=== PATIENT | female | born 1935 | race American Indian/Alaskan Native ===

== ENCOUNTER 2017-12-14 00:07 | Emergency (ER) | payer MEDICARE, MEDICAID ==
[2017-12-14] MEDS ORDERED: Insulin Regular, Human 100 Units/ML 10 ML Vial SUBCUT ONE (01:10)
--- NOTE | 2017-12-14 01:14 | EDM.PDOC ---
ED HPI GENERAL MEDICAL PROBLEM - General Chief Complaint: Diabetic Complaint Stated Complaint: HIGH BLOOD SUGAR Time Seen by Provider: 12/14/17 00:40 Source of Information: Reports: Patient, Family History Limitations: Reports: No Limitations - History of Present Illness INITIAL COMMENTS - FREE TEXT/NARRATIVE: 82-year-old female who has several medical problems, recently started on 40 mg of prednisone daily for "Lupus" has had elevated blood sugars. She was having some hypoglycemic episodes prior to starting the prednisone so they stopped her 20 units of Levemir at bedtime. She is now getting hyperglycemic around midnight , and was told to come to the emergency room if "over 350". Tonight she was at 365, she feels fine but is doing what she was told. Onset: Unknown/Unsure Severity: Mild Denies Pain Score (Numeric/FACES): 0 - Related Data Allergies Allergy/AdvReac Type Severity Reaction Status Date / Time bupropion Allergy Rash Verified 12/14/17 00:19 Home Meds: Home Meds Aspirin [Halfprin] 162 mg PO DAILY 04/29/14 [History] Carvedilol 25 mg PO BID 04/29/14 [History] Cyclobenzaprine [Flexeril] 10 mg PO DAILY PRN 04/29/14 [History] Insulin Aspart [NovoLOG] 5 unit SQ TIDAC 04/29/14 [History] Insulin Detemir [Levemir] 55 units SQ DAILY 04/29/14 [History] Isosorbide Mononitrate [Isosorbide Mononitrate ER] 60 mg PO DAILY 04/29/14 [ History] Losartan [Cozaar] 100 mg PO DAILY 04/29/14 [History] Meclizine [Antivert] 25 mg PO Q6H PRN 04/29/14 [History] Multivitamin [Daily Multiple Vitamin] 1 tab PO DAILY 04/29/14 [History] Nitroglycerin [Nitrostat] 0.4 mg SL QID 04/29/14 [History] Pravastatin [Pravachol] 80 mg PO BEDTIME 04/29/14 [History] Sertraline [Zoloft] 150 mg PO DAILY 04/29/14 [History] Albuterol [Ventolin HFA] 2 puff INH QID PRN 08/27/15 [History] traZODone 50 mg PO DAILY 08/27/15 [History] Albuterol Sulfate 0.63 mg IN Q4HR PRN 07/20/16 [History] Formoterol/Mometasone [Dulera 100 MCG/5 MCG] 2 puff IN BID 07/20/16 [History] Enoxaparin Sodium [Lovenox] 70 mg SQ BID 12/14/17 [History] Sulfamethoxazole/Trimethoprim [Bactrim 400-80 MG] 1 each PO ASDIRECTED 12/14/17 [History] predniSONE [Prednisone] 40 mg PO DAILY 12/14/17 [History] Past Medical History HEENT History: Reports: Cataract Cardiovascular History: Reports: Arrhythmia, Hypertension, [place], Pacemaker Respiratory History: Reports: COPD, Other (See Below) Other Respiratory History: Recently bleeding in lungs. Hospitalized [facility]. D/C November 22 Other Gastrointestinal History: Constipation for three days. Patient took two dulcolax tabs this am without results. 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: Reports: Dysfunctional Uterine Bleeding, Musculoskeletal History: Reports: Arthritis, Osteoporosis, RA Other Musculoskeletal History: sciatic nerve pain Neurological History: Reports: CVA Psychiatric History: Reports: Addiction, Anxiety, Depression Endocrine/Metabolic History: Reports: Diabetes, Type II Dermatologic History: Reports: Other (See Below) Other Dermatologic History: diabetic ulcer - Infectious Disease History Infectious Disease History: Reports: Chicken Pox - Past Surgical History Cardiovascular Surgical History: Reports: Coronary Artery Stent Female Surgical History: Reports: Hysterectomy Social & Family History - Tobacco Use Smoking Status *Q: Current Every Day Smoker Years of Tobacco use: 55 Packs/Tins Daily: 1 Used Tobacco, but Quit: No Second Hand Smoke Exposure: Yes - Caffeine Use Caffeine Use: Reports: Coffee, Soda - Recreational Drug Use Recreational Drug Use: No ED ROS GENERAL - Review of Systems Review Of Systems: See Below Constitutional: Denies: Fever Respiratory: Denies: Shortness of Breath Cardiovascular: Denies: Chest Pain : Reports: No Symptoms Musculoskeletal: Reports: Back Pain (Chronic, receiving occasional steroid injections) Neurological: Denies: Headache Psychiatric: Reports: No Symptoms ED EXAM GENERAL NO PERIP PULSE - Physical Exam Exam: See Below Exam Limited By: No Limitations General Appearance: Alert, No Apparent Distress Respiratory/Chest: No Respiratory Distress, Lungs Clear Cardiovascular: Regular Rate, Rhythm Neurological: Alert, Oriented Psychiatric: Normal Affect, Normal Mood Skin Exam: Warm, Dry Course - Vital Signs Last Recorded V/S: Last Vital Signs Temp 97.2 F 12/14/17 01:43 Pulse 71 12/14/17 01:43 Resp 18 12/14/17 01:43 BP 130/40 L 12/14/17 01:43 Pulse Ox 95 12/14/17 01:43 - Orders/Labs/Meds Orders: Active Orders 24 hr Category Date Time Status GLUCOSE POC LAB TO COLLECT [POC] Stat Lab 12/14/17 00:59 Ordered Meds: Medications Discontinued Medications Generic Name Dose Route Start Last Admin Trade Name Vanita PRN Reason Stop Dose Admin Insulin Human Regular 10 unit 12/14/17 01:10 12/14/17 01:19 Novolin R SUBCUT 12/14/17 01:11 10 units ONETIME ONE Administration Protocol - Re-Assessments/Exams Free Text/Narrative Re-Assessment/Exam: 12/14/17 01:12 Glucometer revealed 364. A long discussion was held with the patient regarding her insulin therapy. I recommended restarting 10 units of Levemir at bedtime especially while on prednisone, and she was given 10 units of short acting insulin tonight. Departure - Departure Time of Disposition: 01:45 Disposition: Home, Self-Care 01 Condition: Good Clinical Impression: Hyperglycemia - Discharge Information Instructions: Hyperglycemia, [id number] Referrals: PCP,None [Primary Care Provider] - Forms: ED Department Discharge Care Plan Goals: Restart 10 units of Levemir at bedtime tomorrow night and continue your other regular medications. Discuss your blood sugar levels with your doctors on Sunday if concerns. - My Orders Last 24 Hours: My Active Orders 12/14/17 00:59 GLUCOSE POC LAB TO COLLECT [POC] Stat - Assessment/Plan Last 24 Hours: My Active Orders 12/14/17 00:59 GLUCOSE POC LAB TO COLLECT [POC] Stat
[2017-12-14 01:44] VITALS: BP 130/40
== END 2017-12-14 01:35 | disposition home or self-care (01) ==
LOC: JP.ED 00:07
DX: E11.65 Type 2 diabetes mellitus with hyperglycemia (principal); I10 Essential (primary) hypertension; I25.2 Old myocardial infarction; M19.90 Unspecified osteoarthritis, unspecified site; F41.9 Anxiety disorder, unspecified; F32.9 Major depressive disorder, single episode, unspecified; F17.210 Nicotine dependence, cigarettes, uncomplicated; Z88.8 Allergy status to other drugs, medicaments and biological substances; Z79.82 Long term (current) use of aspirin; Z79.4 Long term (current) use of insulin; Z79.899 Other long term (current) drug therapy
CPT/HCPCS: 82962; 99284; A9270

== ENCOUNTER 2018-01-01 12:27 | Emergency (ER) | payer MEDICARE, MEDICAID ==
[2018-01-01] MEDS ORDERED: Sodium Chloride 0.9% 10 ML Syringe FLUSH PRN (13:59)
--- NOTE | 2018-01-01 14:17 | EDM.PDOC ---
ED HPI GENERAL MEDICAL PROBLEM - General Chief Complaint: Gastrointestinal Problem Stated Complaint: BLEEDING FROM THE BOTTOM UNSURE WHERE Time Seen by Provider: 01/01/18 14:00 Source of Information: Reports: Patient, Family, Old Records, RN History Limitations: Reports: No Limitations - History of Present Illness INITIAL COMMENTS - FREE TEXT/NARRATIVE: 82 yo female presents after passing blood, apparently by rectum, about 10 am today. Daughter states that blood was flowing out of her rectum while she was walking to the bathroom. Elle was unaware of this. She is on warfarin. Has had some upper abdominal discomfort, but no nausea or vomiting. Is not dizzy with standing. Has no pHx of GI bleeding. Can't tell me when she last had an INR. 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 below) (none) - Related Data Allergies Allergy/AdvReac Type Severity Reaction Status Date / Time bupropion Allergy Rash Verified 12/14/17 00:19 Home Meds: Home Meds Aspirin [Halfprin] 162 mg PO DAILY 04/29/14 [History] Carvedilol 25 mg PO BID 04/29/14 [History] Cyclobenzaprine [Flexeril] 10 mg PO DAILY PRN 04/29/14 [History] Insulin Aspart [NovoLOG] 5 unit SQ TIDAC 04/29/14 [History] Insulin Detemir [Levemir] 55 units SQ DAILY 04/29/14 [History] Isosorbide Mononitrate [Isosorbide Mononitrate ER] 60 mg PO DAILY 04/29/14 [ History] Losartan [Cozaar] 100 mg PO DAILY 04/29/14 [History] Meclizine [Antivert] 25 mg PO Q6H PRN 04/29/14 [History] Multivitamin [Daily Multiple Vitamin] 1 tab PO DAILY 04/29/14 [History] Nitroglycerin [Nitrostat] 0.4 mg SL QID 04/29/14 [History] Pravastatin [Pravachol] 80 mg PO BEDTIME 04/29/14 [History] Sertraline [Zoloft] 150 mg PO DAILY 04/29/14 [History] Albuterol [Ventolin HFA] 2 puff INH QID PRN 08/27/15 [History] traZODone 50 mg PO DAILY 08/27/15 [History] Albuterol Sulfate 0.63 mg IN Q4HR PRN 07/20/16 [History] Formoterol/Mometasone [Dulera 100 MCG/5 MCG] 2 puff IN BID 07/20/16 [History] Enoxaparin Sodium [Lovenox] 70 mg SQ BID 12/14/17 [History] Sulfamethoxazole/Trimethoprim [Bactrim 400-80 MG] 1 each PO ASDIRECTED 12/14/17 [History] predniSONE [Prednisone] 40 mg PO DAILY 12/14/17 [History] Ferrous Gluconate 324 mg PO ASDIRECTED 01/01/18 [History] Warfarin Sodium [Coumadin] 4 mg PO ASDIRECTED 01/01/18 [History] Past Medical History HEENT History: Reports: Cataract Cardiovascular History: Reports: Arrhythmia, Hypertension, [place], Pacemaker Respiratory History: Reports: COPD, Other (See Below) Other Respiratory History: Recently bleeding in lungs. Hospitalized [facility]. D/C November 22 Other Gastrointestinal History: Constipation for three days. Patient took two dulcolax tabs this am without results. 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: Dysfunctional Uterine Bleeding, Musculoskeletal History: Reports: Arthritis, Osteoporosis, RA Other Musculoskeletal History: sciatic nerve pain Neurological History: Reports: CVA Psychiatric History: Reports: Addiction, Anxiety, Depression Endocrine/Metabolic History: Reports: Diabetes, Type II Dermatologic History: Reports: Other (See Below) Other Dermatologic History: diabetic ulcer - Infectious Disease History Infectious Disease History: Reports: Chicken Pox - Past Surgical History Cardiovascular Surgical History: Reports: Coronary Artery Stent Female Surgical History: Reports: Hysterectomy Social & Family History - Tobacco Use Smoking Status *Q: Light Tobacco Smoker Years of Tobacco use: 60 Packs/Tins Daily: 1 - Caffeine Use Caffeine Use: Reports: Coffee, Soda - Recreational Drug Use Recreational Drug Use: No ED ROS GENERAL - Review of Systems Review Of Systems: See Below Constitutional: Reports: No Symptoms HEENT: Reports: No Symptoms Respiratory: Reports: No Symptoms Cardiovascular: Reports: No Symptoms GI/Abdominal: Reports: Abdominal Pain (mild, upper), Bloody Stool (? blood only per rectum.). Denies: Black Stool, Constipation, Hematemesis, Hematochezia, Melena, Nausea, Vomiting, Other : Reports: No Symptoms Musculoskeletal: Reports: No Symptoms Skin: Reports: No Symptoms Neurological: Reports: Confusion (mild, not new) Psychiatric: Reports: No Symptoms ED EXAM, GI/ABD - Physical Exam Exam: See Below Exam Limited By: No Limitations General Appearance: Alert, WD/WN, No Apparent Distress Eyes: Bilateral: Normal Appearance Ears: Normal External Exam, Normal Canal, Hearing Loss (mild) Nose: Normal Inspection, Normal Mucosa, No Blood Throat/Mouth: Normal Inspection, Normal Lips, Normal Oropharynx, Normal Voice, No Airway Compromise Head: Atraumatic, Normocephalic Neck: Normal Inspection, Supple Respiratory/Chest: No Respiratory Distress, Lungs Clear, Normal Breath Sounds, No Accessory Muscle Use Cardiovascular: Regular Rate, Rhythm, No Edema GI/Abdominal Exam: Normal Bowel Sounds, Soft, No Distention, Tender (mild upper half) Rectal (Female) Exam: Bloody Stool (maroon) Back Exam: Normal Inspection. No: CVA Tenderness (R), CVA Tenderness (L) Extremities: Normal Inspection, Normal Range of Motion, Non-Tender, No Pedal Edema Neurological: Alert, Oriented, CN II-XII Intact, No Motor/Sensory Deficits, Confused (mild, poor historian) Psychiatric: Normal Affect, Normal Mood Skin Exam: Warm, Dry, Intact, Normal Color, No Rash Lymphatic: No Adenopathy Course - Vital Signs Text/Narrative:: [facility] is full, will send to [facility], Dr. Collins accepts @ 2334. Last Recorded V/S: Last Vital Signs Temp 35.9 C 01/01/18 13:52 Pulse 81 01/01/18 13:52 Resp 16 01/01/18 13:52 BP 145/112 H 01/01/18 13:52 Pulse Ox 95 01/01/18 13:52 - Orders/Labs/Meds Orders: Active Orders 24 hr Category Date Time Status Orthostatic Vital Signs [RC] ASDIRECTED Care 01/01/18 13:59 Active BASIC METABOLIC PANEL,BMP [CHEM] Stat Lab 01/01/18 14:10 Received UA W/MICROSCOPIC [URIN] Stat Lab 01/01/18 13:59 Ordered Lactated Ringers [Ringers, Lactated] 1,000 ml Med 01/01/18 15:15 Active IV ASDIRECTED Lactated Ringers [Ringers, Lactated] 1,000 ml Med 01/01/18 15:15 Active IV ASDIRECTED Sodium Chloride 0.9% [Saline Flush] Med 01/01/18 13:59 Active 10 ml FLUSH ASDIRECTED PRN Saline Lock Insert [OM.PC] Routine Oth 01/01/18 13:59 Ordered Medication Orders Lactated Ringer's (Ringers, Lactated) 1,000 mls @ 150 mls/hr IV ASDIRECTED PASTORA Lactated Ringer's (Ringers, Lactated) 1,000 mls @ 50 mls/hr IV ASDIRECTED PASTORA Sodium Chloride (Saline Flush) 10 ml FLUSH ASDIRECTED PRN PRN Reason: Keep Vein Open Last Admin: 01/01/18 14:47 Dose: 10 ml Labs: Laboratory Tests 01/01/18 01/01/18 Range/Units 13:59 14:10 WBC 8.6 (4.5-11.0) K/uL RBC 3.08 L (3.30-5.50) M/uL Hgb 8.0 L D (12.0-15.0) g/dL Hct 27.4 L (36.0-48.0) % MCV 89 (80-98) fL MCH 26 L (27-31) pg MCHC 29 L (32-36) % Plt Count 136 L (150-400) K/uL PT 14.2 H (9.5-12.0) sec INR 1.31 H (0.80-1.20) Meds: Medications Generic Name Dose Route Start Last Admin Trade Name Freq PRN Reason Stop Dose Admin Lactated Ringer's 1,000 mls @ 150 mls/hr 01/01/18 15:15 Ringers, Lactated IV ASDIRECTED PASTORA Lactated Ringer's 1,000 mls @ 50 mls/hr 01/01/18 15:15 Ringers, Lactated IV ASDIRECTED PASTORA Sodium Chloride 10 ml 01/01/18 13:59 01/01/18 14:47 Saline Flush FLUSH 10 ml ASDIRECTED PRN Administration Keep Vein Open Discontinued Medications Generic Name Dose Route Start Last Admin Trade Name Elvisq PRN Reason Stop Dose Admin Pantoprazole Sodium 80 mg/ 100 mls @ 200 mls/hr 01/01/18 14:45 01/01/18 14:47 Sodium Chloride IV 01/01/18 15:14 200 mls/hr ONETIME ONE Administration Departure - Departure Time of Disposition: 15:30 Disposition: DC/Tfer to Acute Hospital 02 Condition: Fair Clinical Impression: GI bleed Qualifiers: GI bleed type/associated pathology: unspecified gastrointestinal hemorrhage type Qualified Code(s): K92.2 - Gastrointestinal hemorrhage, unspecified Anemia Qualifiers: Anemia type: unspecified type Qualified Code(s): D64.9 - Anemia, unspecified - Discharge Information Referrals: Amber Alaniz I AERIAL GUNNER [Primary Care Provider] - Forms: ED Department Discharge - My Orders Last 24 Hours: My Active Orders 01/01/18 13:59 Orthostatic Vital Signs [RC] ASDIRECTED UA W/MICROSCOPIC [URIN] Stat Sodium Chloride 0.9% [Saline Flush] 10 ml FLUSH ASDIRECTED PRN Saline Lock Insert [OM.PC] Routine 01/01/18 14:10 BASIC METABOLIC PANEL,BMP [CHEM] Stat 01/01/18 15:15 Lactated Ringers [Ringers, Lactated] 1,000 ml IV ASDIRECTED Lactated Ringers [Ringers, Lactated] 1,000 ml IV ASDIRECTED - Assessment/Plan Last 24 Hours: My Active Orders 01/01/18 13:59 Orthostatic Vital Signs [RC] ASDIRECTED UA W/MICROSCOPIC [URIN] Stat Sodium Chloride 0.9% [Saline Flush] 10 ml FLUSH ASDIRECTED PRN Saline Lock Insert [OM.PC] Routine 01/01/18 14:10 BASIC METABOLIC PANEL,BMP [CHEM] Stat 01/01/18 15:15 Lactated Ringers [Ringers, Lactated] 1,000 ml IV ASDIRECTED Lactated Ringers [Ringers, Lactated] 1,000 ml IV ASDIRECTED
[2018-01-01] MEDS ORDERED: Pantoprazole 80 MG in Sodium Chloride 0.9% 100 ML IV SCH (14:30)
[2018-01-01] MEDS ORDERED: Pantoprazole 80 MG in Sodium Chloride 0.9% 100 ML IV ONE (14:45)
[2018-01-01] MEDS ORDERED: Lactated Ringers 1,000 ML IV SCH ×2 (15:15)
[2018-01-01 17:35] VITALS: BP 125/94
== END 2018-01-01 17:54 ==
LOC: JP.ED 12:27
DX: K92.2 Gastrointestinal hemorrhage, unspecified (principal); D64.9 Anemia, unspecified; F17.210 Nicotine dependence, cigarettes, uncomplicated; J44.9 Chronic obstructive pulmonary disease, unspecified; Z79.899 Other long term (current) drug therapy; E11.9 Type 2 diabetes mellitus without complications; Z86.73 Personal history of transient ischemic attack (TIA), and cerebral infarction without residual deficits; Z79.4 Long term (current) use of insulin; Z79.82 Long term (current) use of aspirin; Z79.01 Long term (current) use of anticoagulants; Z88.8 Allergy status to other drugs, medicaments and biological substances
CPT/HCPCS: 36415; 80048; 85027; 85610; 96361; 96365; 99283; 99285; C9113; J7030; J7050; J7120

== ENCOUNTER 2018-01-22 13:31 | Emergency (ER) | payer MEDICARE, MEDICAID ==
--- NOTE | 2018-01-22 15:07 | EDM.PDOC ---
ED HPI GENERAL MEDICAL PROBLEM - General Chief Complaint: Syncope Stated Complaint: FELL AND HURT LEFT HIP Time Seen by Provider: 01/22/18 14:50 Source of Information: Reports: Patient, Family, Old Records, RN History Limitations: Reports: No Limitations - History of Present Illness INITIAL COMMENTS - FREE TEXT/NARRATIVE: 82 yo female presents with L hip pain after a fall in her home about 0430h today. Has been able to walk since with extreme difficulty only. Uses a walker to get around. Onset: Today Onset Date: 01/22/18 Onset Time: 04:30 Duration: Hour(s):, Constant Location: Reports: Lower Extremity, Left Quality: Reports: Ache Severity: Moderate Improves with: Reports: Rest Worsens with: Reports: Movement Context: Reports: Trauma Associated Symptoms: Reports: No Other Symptoms Treatments VAMPER: Reports: Other (see below) (none) - Related Data Allergies Allergy/AdvReac Type Severity Reaction Status Date / Time bupropion Allergy Rash Verified 12/14/17 00:19 Home Meds: Home Meds Aspirin [Halfprin] 81 mg PO DAILY 04/29/14 [History] Carvedilol 25 mg PO BID 04/29/14 [History] Cyclobenzaprine [Flexeril] 10 mg PO DAILY PRN 04/29/14 [History] Insulin Aspart [NovoLOG] 5 unit SQ TIDAC 04/29/14 [History] Insulin Detemir [Levemir] 40 units SQ DAILY 04/29/14 [History] Isosorbide Mononitrate [Isosorbide Mononitrate ER] 30 mg PO DAILY 04/29/14 [ History] Losartan [Cozaar] 100 mg PO DAILY 04/29/14 [History] Meclizine [Antivert] 25 mg PO Q6H PRN 04/29/14 [History] Multivitamin [Daily Multiple Vitamin] 1 tab PO DAILY 04/29/14 [History] Nitroglycerin [Nitrostat] 0.4 mg SL QID 04/29/14 [History] Pravastatin [Pravachol] 80 mg PO BEDTIME 04/29/14 [History] Sertraline [Zoloft] 150 mg PO DAILY 04/29/14 [History] Albuterol [Ventolin HFA] 2 puff INH QID PRN 08/27/15 [History] traZODone 50 mg PO DAILY 08/27/15 [History] Albuterol Sulfate 0.63 mg IN Q4HR PRN 07/20/16 [History] Formoterol/Mometasone [Dulera 100 MCG/5 MCG] 2 puff IN BID 07/20/16 [History] Sulfamethoxazole/Trimethoprim [Bactrim 400-80 MG] 1 each PO ASDIRECTED 12/14/17 [History] predniSONE [Prednisone] 20 mg PO DAILY 12/14/17 [History] Warfarin Sodium [Coumadin] 4 mg PO ASDIRECTED 01/01/18 [History] Baclofen 10 mg PO BEDTIME 01/22/18 [History] Mycophenolate Mofetil 1,000 mg PO DAILY 01/22/18 [History] Saxagliptin HCl [Onglyza] 1 tab PO DAILY 01/22/18 [History] Past Medical History HEENT History: Reports: Cataract Cardiovascular History: Reports: Arrhythmia, Hypertension, [place], Pacemaker Respiratory History: Reports: COPD, Other (See Below) Other Respiratory History: Recently bleeding in lungs. Hospitalized [facility]. D/C November 22 Gastrointestinal History: Reports: GI Bleed Other Gastrointestinal History: Constipation for three days. Patient took two dulcolax tabs this am without results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 Psychiatric History: Reports: Addiction, Anxiety, Depression Endocrine/Metabolic History: Reports: Diabetes, Type II Hematologic History: Reports: Anemia, Blood Transfusion(s) Immunologic History: Reports: Other (See Below) Other Immunologic History: BELA AND RA Dermatologic History: Reports: Other (See Below) Other Dermatologic History: diabetic ulcer - Infectious Disease History Infectious Disease History: Reports: Chicken Pox - Past Surgical History Cardiovascular Surgical History: Reports: Coronary Artery Stent Female Surgical History: Reports: Hysterectomy Social & Family History - Tobacco Use Smoking Status *Q: Current Every Day Smoker Years of Tobacco use: 56 Packs/Tins Daily: 0.5 - Caffeine Use Caffeine Use: Reports: Coffee, Soda - Recreational Drug Use Recreational Drug Use: No Review of Systems - Review of Systems Review Of Systems: See Below Constitutional: Reports: No Symptoms Eyes: Reports: No Symptoms Ears: Reports: No Symptoms Nose: Reports: No Symptoms Respiratory: Reports: No Symptoms Cardiovascular: Reports: No Symptoms GI/Abdominal: Reports: No Symptoms Genitourinary: Reports: No Symptoms Musculoskeletal: Reports: Joint Pain (L hip) Skin: Reports: Bruising (L eyebrow area from fall today.) Neurological: Reports: No Symptoms ED EXAM, GENERAL - Physical Exam Exam: See Below Exam Limited By: No Limitations General Appearance: Alert, WD/WN, No Apparent Distress Eye Exam: Bilateral Eye: Normal Inspection, PERRL Ears: Normal External Exam, Normal Canal, Hearing Grossly Normal Ear Exam: Bilateral Ear: Auricle Normal, Canal Normal Nose: Normal Inspection, Normal Mucosa Throat/Mouth: Normal Inspection, Normal Lips, Normal Oropharynx, Normal Voice, No Airway Compromise Head: Atraumatic, Normocephalic Neck: Normal Inspection, Supple Respiratory/Chest: No Respiratory Distress, Lungs Clear, Normal Breath Sounds, No Accessory Muscle Use Cardiovascular: Regular Rate, Rhythm, No Edema GI/Abdominal: Normal Bowel Sounds, Soft, Non-Tender, No Distention Extremities: Normal Inspection, Limited Range of Motion (passive ROM of L hip area tolerated as long as the ROM is limited, beyond a few degrees pain is too great. ), Other (Unable to lift L leg off the bed. No pain with pelvic compression. ) Neurological: Alert, Oriented, CN II-XII Intact, Normal Cognition, No Motor/ Sensory Deficits Psychiatric: Normal Affect, Normal Mood Skin Exam: Warm, Dry, Intact, No Rash, Ecchymosis (bruising around L eyebrow) Course - Vital Signs Text/Narrative:: able to walk in ED with a walker after 1 Percocet po. Last Recorded V/S: Last Vital Signs Temp 36.6 C 01/22/18 17:27 Pulse 82 01/22/18 17:27 Resp 15 01/22/18 17:27 BP 131/77 01/22/18 17:27 Pulse Ox 96 01/22/18 17:27 - Orders/Labs/Meds Orders: Active Orders 24 hr Category Date Time Status Hip Min 2V or 3V w Pelvis Lt [CR] Stat Exams 01/22/18 14:58 Taken Hip wo Cont Lt [CT] Stat Exams 01/22/18 15:34 Taken Hemoccult [OCCULT BLOOD DIAGNOSTIC] [OP] Stat Lab 01/22/18 17:19 Ordered Labs: Laboratory Tests 01/22/18 01/22/18 01/22/18 Range/Units 16:35 17:04 17:05 Hgb 8.5 L (12.0-15.0) g/dL PT 10.7 (9.5-12.0) sec INR 0.97 (0.80-1.20) Sodium 140 (140-148) mmol/L Potassium 3.4 L (3.6-5.2) mmol/L Chloride 106 (100-108) mmol/L Carbon Dioxide 25 (21-32) mmol/L Anion Gap 12.4 (5.0-14.0) mmol/L BUN 13 (7-18) mg/dL Creatinine 0.6 (0.6-1.0) mg/dL Est Cr Clr Drug Dosing 52.82 mL/min Estimated GFR (MDRD) > 60 (>60) Glucose 176 H (74-106) mg/dL Calcium 8.3 L (8.5-10.1) mg/dL Meds: Medications Discontinued Medications Generic Name Dose Route Start Last Admin Trade Name Freq PRN Reason Stop Dose Admin Oxycodone/Acetaminophen 1 tab 01/22/18 16:22 01/22/18 16:26 Percocet 325-5 Mg PO 01/22/18 16:23 1 tab ONETIME ONE Administration Potassium Chloride 20 meq 01/22/18 17:22 01/22/18 17:25 Klor-Con M20 PO 01/22/18 17:23 20 meq ONETIME ONE Administration - Radiology Interpretation Free Text/Narrative:: L hip X-ray-neg CT of L hip-degen changes only. Departure - Departure Time of Disposition: 17:34 Disposition: Home, Self-Care 01 Condition: Fair Clinical Impression: Hypokalemia Contusion of hip, left Qualifiers: Encounter type: initial encounter Qualified Code(s): S70.02XA - Contusion of left hip, initial encounter Anemia Qualifiers: Anemia type: unspecified type Qualified Code(s): D64.9 - Anemia, unspecified - Discharge Information Referrals: PCP,None [Primary Care Provider] - Forms: ED Department Discharge Additional Instructions: Take Percocet to help your pain so you can walk. Eat a high potassium diet. Recheck with your provider within the week. - My Orders Last 24 Hours: My Active Orders 01/22/18 14:58 Hip Min 2V or 3V w Pelvis Lt [CR] Stat 01/22/18 15:34 Hip wo Cont Lt [CT] Stat 01/22/18 17:19 Hemoccult [OCCULT BLOOD DIAGNOSTIC] [OP] Stat - Assessment/Plan Last 24 Hours: My Active Orders 01/22/18 14:58 Hip Min 2V or 3V w Pelvis Lt [CR] Stat 01/22/18 15:34 Hip wo Cont Lt [CT] Stat 01/22/18 17:19 Hemoccult [OCCULT BLOOD DIAGNOSTIC] [OP] Stat
[2018-01-22] MEDS ORDERED: Acetaminophen/oxyCODONE 325-5 MG Tab PO ONE (16:22)
[2018-01-22] MEDS ORDERED: Potassium Chloride 20 MEQ Tab.ER PO ONE (17:22)
[2018-01-22 17:29] VITALS: BP 131/77
--- NOTE | 2018-01-23 08:32 | CR ---
Hip Min 2V or 3V w Pelvis Lt CLINICAL HISTORY: Pain, fall FINDINGS: No acute fracture or dislocation is noted. No destructive changes are present. The joint sp aces are narrowed in both hips. There is some acetabular spurring. There is moderate diffuse atherosc lerotic changes. There is spurring at the greater trochanters bilaterally Impression: Moderate osteoarthritic changes No fracture is identified If clinical symptomatology persists or worsens a repeat exam is recommended.
== END 2018-01-22 17:54 | disposition home or self-care (01) ==
LOC: JP.ED 13:31
DX: S70.02XA Contusion of left hip, initial encounter (principal); D64.9 Anemia, unspecified; E87.6 Hypokalemia; F17.210 Nicotine dependence, cigarettes, uncomplicated; I10 Essential (primary) hypertension; J44.9 Chronic obstructive pulmonary disease, unspecified; I25.2 Old myocardial infarction; M19.90 Unspecified osteoarthritis, unspecified site; E11.9 Type 2 diabetes mellitus without complications; F41.9 Anxiety disorder, unspecified; F32.9 Major depressive disorder, single episode, unspecified; Z79.82 Long term (current) use of aspirin; Z79.899 Other long term (current) drug therapy; Z88.8 Allergy status to other drugs, medicaments and biological substances; W19.XXXA Unspecified fall, initial encounter; W22.8XXA Striking against or struck by other objects, initial encounter
CPT/HCPCS: 36415; 73502; 73700; 80048; 82272; 85018; 85610; 99285; A9270

== ENCOUNTER 2018-02-28 15:21 | Emergency (ER) | payer MEDICARE, MEDICAID ==
[2018-02-28] MEDS: Lactated Ringers 1,000 ML IV ONE ×2 (15:41→15:42)
--- NOTE | 2018-02-28 16:14 | EDM.PDOC ---
ED HPI GENERAL MEDICAL PROBLEM - General Chief Complaint: Cardiovascular Problem Stated Complaint: ILLNESS Time Seen by Provider: 02/28/18 15:50 Source of Information: Reports: Patient, Old Records History Limitations: Reports: No Limitations - History of Present Illness INITIAL COMMENTS - FREE TEXT/NARRATIVE: 82 yo female here via EMS with low blood pressure for which she is asymptomatic. She states she has not seen her primary even though she has been directed after each of her many recent ER visits to follow up with him. Last time she was here she received a liter of fluids IV and this brought her BP up into the normal range. 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 date of change.) - Related Data Allergies Allergy/AdvReac Type Severity Reaction Status Date / Time bupropion Allergy Rash Verified 02/28/18 15:23 Home Meds: Home Meds Aspirin [Halfprin] 81 mg PO DAILY 04/29/14 [History] Carvedilol 25 mg PO BID 04/29/14 [History] Cyclobenzaprine [Flexeril] 10 mg PO DAILY PRN 04/29/14 [History] Insulin Aspart [NovoLOG] 5 unit SQ TIDAC 04/29/14 [History] Insulin Detemir [Levemir] 55 units SQ DAILY 04/29/14 [History] Isosorbide Mononitrate [Isosorbide Mononitrate ER] 60 mg PO DAILY 04/29/14 [ History] Losartan [Cozaar] 100 mg PO DAILY 04/29/14 [History] Meclizine [Antivert] 25 mg PO Q6H PRN 04/29/14 [History] Multivitamin [Daily Multiple Vitamin] 1 tab PO DAILY 04/29/14 [History] Nitroglycerin [Nitrostat] 0.4 mg SL QID 04/29/14 [History] Pravastatin [Pravachol] 80 mg PO BEDTIME 04/29/14 [History] Sertraline [Zoloft] 150 mg PO DAILY 04/29/14 [History] Albuterol [Ventolin HFA] 2 puff INH QID PRN 08/27/15 [History] traZODone 50 mg PO DAILY 08/27/15 [History] Albuterol Sulfate 0.63 mg IN Q4HR PRN 07/20/16 [History] Formoterol/Mometasone [Dulera 100 MCG/5 MCG] 2 puff IN BID 07/20/16 [History] Sulfamethoxazole/Trimethoprim [Bactrim 400-80 MG] 1 each PO ASDIRECTED 12/14/17 [History] predniSONE [Prednisone] 20 mg PO DAILY 12/14/17 [History] Warfarin Sodium [Coumadin] 4 mg PO ASDIRECTED 01/01/18 [History] Baclofen 10 mg PO BEDTIME 01/22/18 [History] Mycophenolate Mofetil 1,000 mg PO BID 01/22/18 [History] Saxagliptin HCl [Onglyza] 1 tab PO DAILY 01/22/18 [History] Past Medical History HEENT History: Reports: Cataract Cardiovascular History: Reports: Arrhythmia, Hypertension, [place], Pacemaker Respiratory History: Reports: COPD, Other (See Below) Other Respiratory History: Recently bleeding in lungs. Hospitalized [facility]. D/C November 22 Gastrointestinal History: Reports: GI Bleed Other Gastrointestinal History: Constipation for three days. Patient took two dulcolax tabs this am without results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: Reports: Dysfunctional Uterine Bleeding, Musculoskeletal History: Reports: Arthritis, Osteoarthritis, Osteoporosis, RA Other Musculoskeletal History: sciatic nerve pain Neurological History: Reports: CVA, Other (See Below) Other Neuro History: CHOREA INVOLUNTARY MOVEMENTS HANDS AND FEET Psychiatric History: Reports: Addiction, Anxiety, Depression Endocrine/Metabolic History: Reports: Diabetes, Type II Hematologic History: Reports: Anemia, Blood Transfusion(s) Immunologic History: Reports: Other (See Below) Other Immunologic History: BELA AND RA Dermatologic History: Reports: Other (See Below) Other Dermatologic History: diabetic ulcer - Infectious Disease History Infectious Disease History: Reports: Chicken Pox - Past Surgical History Cardiovascular Surgical History: Reports: Coronary Artery Stent Female Surgical History: Reports: Hysterectomy Social & Family History - Tobacco Use Smoking Status *Q: Heavy Tobacco Smoker Years of Tobacco use: 71 Packs/Tins Daily: 1 - Caffeine Use Caffeine Use: Reports: Coffee - Recreational Drug Use Recreational Drug Use: No ED ROS GENERAL - Review of Systems Review Of Systems: See Below Constitutional: Reports: No Symptoms HEENT: Reports: No Symptoms Respiratory: Reports: No Symptoms Cardiovascular: Reports: No Symptoms Endocrine: Reports: No Symptoms GI/Abdominal: Reports: No Symptoms : Reports: No Symptoms Musculoskeletal: Reports: No Symptoms Skin: Reports: No Symptoms Neurological: Reports: No Symptoms Psychiatric: Reports: No Symptoms ED EXAM, GENERAL - Physical Exam Exam: See Below Exam Limited By: No Limitations General Appearance: Alert, WD/WN, No Apparent Distress Eye Exam: Bilateral Eye: Normal Inspection Ears: Normal External Exam, Normal Canal, Hearing Grossly Normal Ear Exam: Bilateral Ear: Auricle Normal, Canal Normal Nose: Normal Inspection, Normal Mucosa, No Blood Throat/Mouth: Normal Inspection, Normal Lips, Normal Oropharynx, Normal Voice, No Airway Compromise Head: Atraumatic, Normocephalic Neck: Normal Inspection Respiratory/Chest: No Respiratory Distress, Lungs Clear, Normal Breath Sounds, No Accessory Muscle Use Cardiovascular: Regular Rate, Rhythm, No Edema GI/Abdominal: Normal Bowel Sounds, Soft, Non-Tender Extremities: Normal Inspection, Normal Range of Motion, Non-Tender, No Pedal Edema Neurological: Alert, Oriented, CN II-XII Intact, Normal Cognition, No Motor/ Sensory Deficits Psychiatric: Normal Affect, Normal Mood Skin Exam: Warm, Dry, Intact, Normal Color, No Rash Lymphatic: No Adenopathy Course - Vital Signs Last Recorded V/S: Last Vital Signs Temp 36.1 C 02/28/18 15:26 Pulse 69 02/28/18 16:42 Resp 20 02/28/18 16:42 BP 100/36 L 02/28/18 16:42 Pulse Ox 70 L 02/28/18 16:42 - Orders/Labs/Meds Labs: Laboratory Tests 02/28/18 Range/Units 15:34 Potassium 4.7 (3.6-5.2) mmol/L Meds: Medications Discontinued Medications Generic Name Dose Route Start Last Admin Trade Name Freq PRN Reason Stop Dose Admin Lactated Ringer's 1,000 mls @ 1,000 mls/hr 02/28/18 15:35 02/28/18 15:42 Ringers, Lactated IV 02/28/18 16:34 1,000 mls/hr BOLUS ONE Administration Departure - Departure Time of Disposition: 16:47 Disposition: Home, Self-Care 01 Condition: Fair Clinical Impression: Hypotension Qualifiers: Hypotension type: unspecified hypotension type Qualified Code(s): I95.9 - Hypotension, unspecified Instructions: Hypotension, [id number] Referrals: PCP,None [Primary Care Provider] - Forms: ED Department Discharge Additional Instructions: Reduce your losartan to 25 mg daily. Reduce your Coreg to 12.5 mg every 12 hrs. Recheck BP with your doctor as soon as possible. Continue your other meds as currently.
[2018-02-28 17:04] VITALS: BP 113/48
== END 2018-02-28 18:20 | disposition home or self-care (01) ==
LOC: JP.ED 15:21
DX: I95.9 Hypotension, unspecified (principal); F17.210 Nicotine dependence, cigarettes, uncomplicated; I10 Essential (primary) hypertension; E11.9 Type 2 diabetes mellitus without complications; I25.2 Old myocardial infarction; J44.9 Chronic obstructive pulmonary disease, unspecified; F41.9 Anxiety disorder, unspecified; F32.9 Major depressive disorder, single episode, unspecified; Z79.4 Long term (current) use of insulin; Z79.899 Other long term (current) drug therapy; Z79.82 Long term (current) use of aspirin; Z88.8 Allergy status to other drugs, medicaments and biological substances
CPT/HCPCS: 36415; 84132; 96360; 99284; J7120

== ENCOUNTER 2018-07-29 22:17 | Inpatient (IN) | payer MEDICARE, MEDICAID ==
--- NOTE | 2018-07-29 23:34 | EDM.PDOC ---
ED HPI GENERAL MEDICAL PROBLEM - General Chief Complaint: Lower Extremity Injury/Pain Stated Complaint: FELL HURT RI HIP Time Seen by Provider: 07/29/18 23:29 Source of Information: Reports: Patient, EMS, RN Notes Reviewed History Limitations: Reports: No Limitations - History of Present Illness INITIAL COMMENTS - FREE TEXT/NARRATIVE: 83-year-old female presents emergency department today following a fall at home she tripped on the rug fell landed predominate on her right hip she now is experiencing significant pain. Transported via EMS services did receive 100 g of fentanyl which has provided good pain control Right Hip Pain Score (Numeric/FACES): 3 - Related Data Allergies Allergy/AdvReac Type Severity Reaction Status Date / Time bupropion Allergy Rash Verified 02/28/18 15:23 Home Meds: Home Meds Aspirin [Halfprin] 81 mg PO DAILY 04/29/14 [History] Carvedilol 6.25 mg PO BID 04/29/14 [History] Insulin Aspart [NovoLOG] 5 unit SQ TIDAC 04/29/14 [History] Insulin Detemir [Levemir] 80 units SQ DAILY 04/29/14 [History] Losartan [Cozaar] 100 mg PO DAILY 04/29/14 [History] Multivitamin [Daily Multiple Vitamin] 1 tab PO DAILY 04/29/14 [History] Nitroglycerin [Nitrostat] 0.4 mg SL QID 04/29/14 [History] Pravastatin [Pravachol] 80 mg PO BEDTIME 04/29/14 [History] Sertraline [Zoloft] 150 mg PO DAILY 04/29/14 [History] Albuterol [Ventolin HFA] 2 puff INH QID PRN 08/27/15 [History] traZODone 50 mg PO DAILY 08/27/15 [History] Albuterol Sulfate 0.63 mg IN Q4HR PRN 07/20/16 [History] Formoterol/Mometasone [Dulera 100 MCG/5 MCG] 2 puff IN BID 07/20/16 [History] Sulfamethoxazole/Trimethoprim [Bactrim 400-80 MG] 1 each PO ASDIRECTED 12/14/17 [History] Baclofen 10 mg PO BEDTIME 01/22/18 [History] Mycophenolate Mofetil 1,000 mg PO BID 01/22/18 [History] Saxagliptin HCl [Onglyza] 1 tab PO DAILY 01/22/18 [History] Acetaminophen/HYDROcodone [[place] 325-5 MG] 1 tab PO DAILY 07/29/18 [History] Ibuprofen 400 mg PO Q6H PRN 07/29/18 [History] Isosorbide Mononitrate [Isosorbide Mononitrate ER] 30 mg PO DAILY 07/29/18 [ History] Omeprazole Magnesium [Prilosec Otc] 20 mg PO DAILY 07/29/18 [History] Ondansetron [Zofran Odt] 8 mg PO BID 07/29/18 [History] Past Medical History HEENT History: Reports: Cataract Cardiovascular History: Reports: Arrhythmia, CAD, Hypertension, [place], Pacemaker Respiratory History: Reports: COPD, Other (See Below) Other Respiratory History: Recently bleeding in lungs. Hospitalized [facility]. D/C November 22 Gastrointestinal History: Reports: GI Bleed Other Gastrointestinal History: Constipation for three days. Patient took two dulcolax tabs this am without results. 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 History: Reports: Dysfunctional Uterine Bleeding, Musculoskeletal History: Reports: Arthritis, Osteoarthritis, Osteoporosis, RA Other Musculoskeletal History: sciatic nerve pain Neurological History: Reports: CVA, Other (See Below) Other Neuro History: CHOREA INVOLUNTARY MOVEMENTS HANDS AND FEET Psychiatric History: Reports: Addiction, Anxiety, Depression Endocrine/Metabolic History: Reports: Diabetes, Type II Hematologic History: Reports: Anemia, Blood Transfusion(s) Immunologic History: Reports: Other (See Below) Other Immunologic History: BELA AND RA Dermatologic History: Reports: Other (See Below) Other Dermatologic History: diabetic ulcer - Infectious Disease History Infectious Disease History: Reports: Chicken Pox - Past Surgical History Cardiovascular Surgical History: Reports: Coronary Artery Stent Female Surgical History: Reports: Hysterectomy Social & Family History - Tobacco Use Smoking Status *Q: Unknown Ever Smoked - Caffeine Use Caffeine Use: Reports: None - Recreational Drug Use Recreational Drug Use: No Review of Systems - Review of Systems Review Of Systems: See Below Constitutional: Reports: No Symptoms Respiratory: Reports: No Symptoms Cardiovascular: Reports: No Symptoms GI/Abdominal: Reports: No Symptoms Musculoskeletal: Reports: Joint Pain (Right hip pain) Skin: Reports: No Symptoms Neurological: Reports: No Symptoms ED EXAM, GENERAL - Physical Exam Exam: See Below Free Text/Narrative:: Examination the right hip I don't appreciate any bruising there is no erythema there is no edema noted she does have pain with either flexion or extension or internal/external rotation of the hip Exam Limited By: No Limitations General Appearance: Alert, WD/WN, No Apparent Distress Course - Vital Signs Last Recorded V/S: Last Vital Signs Temp 96.0 F 07/29/18 22:24 Pulse 88 07/29/18 23:00 Resp 16 07/29/18 23:00 BP 107/45 L 07/29/18 23:00 Pulse Ox 95 07/29/18 23:00 - Orders/Labs/Meds Orders: Active Orders 24 hr Category Date Time Status Hip Min 2V or 3V w Pelvis Rt [CR] Stat Exams 07/29/18 23:31 Taken Hip wo Cont Rt [CT] Stat Exams 07/30/18 00:29 Taken Meds: Medications Discontinued Medications Generic Name Dose Route Start Last Admin Trade Name Freq PRN Reason Stop Dose Admin Fentanyl 50 mcg 07/30/18 00:30 07/30/18 00:58 Sublimaze IVPUSH 07/30/18 00:31 50 mcg ONETIME ONE Administration Departure - Departure Time of Disposition: 02:08 Disposition: DC/Tfer to Acute Hospital 02 Condition: Fair Clinical Impression: Acetabulum fracture, right Qualifiers: Encounter type: initial encounter Sublocation of acetabulum: anterior wall Fracture type: closed Fracture alignment: nondisplaced Qualified Code(s): S32.414A - Nondisplaced fracture of anterior wall of right acetabulum, initial encounter for closed fracture - Discharge Information Referrals: PCP,None [Primary Care Provider] - Forms: ED Department Discharge - My Orders Last 24 Hours: My Active Orders 07/29/18 23:31 Hip Min 2V or 3V w Pelvis Rt [CR] Stat 07/30/18 00:29 Hip wo Cont Rt [CT] Stat - Assessment/Plan Last 24 Hours: My Active Orders 07/29/18 23:31 Hip Min 2V or 3V w Pelvis Rt [CR] Stat 07/30/18 00:29 Hip wo Cont Rt [CT] Stat Plan: Assessment Acuity = acute Site and laterality = NONDISPLACED FRACTURE OF THE ANTERIOR-SUPERIOR RIGHT ACETABULUM Etiology = secondary to fall at home Manifestations = pain Location of injury = Home Lab values = initial x-ray did not appreciate a fracture, however the CT scan describes the fracture above Plan Called discussed the case with Dr. Car hospitalist at [facility] at 02:00 kindly accepted the patient, she will be transported via EMS ground, has received 150 mics of fentanyl for pain control This note was dictated using [employer] voice recognition software please call with any questions on syntax or grammar.
[2018-07-30] MEDS ORDERED: fentaNYL 100 MCG/2 ML SDV IVPUSH ONE (00:30)
--- NOTE | 2018-07-30 08:54 | PCM.HP ---
H&P History of Present Illness - General Date of Service: 07/30/18 Admit Problem/Dx: Admission Diagnosis/Problem Admission Diagnosis/Problem Fracture of acetabulum Source of Information: Patient, Provider, RN Notes Reviewed History Limitations: Reports: No Limitations - History of Present Illness Initial Comments - Free Text/Narative: Ms. Wei is an 83-year-old woman who was admitted through the emergency department after falling at home and experiencing pubic rami fracture as well as nondisplaced acetabular fracture. Fractures identified on CT scan and have been reviewed by orthopedic surgery, fractures are felt to be nonsurgical at the present time. She has multiple other underlying medical problems including diabetes, COPD, congestive heart failure, and coronary artery disease. She reports a recent history of abdominal pain over the past several months with a 20 pound weight loss. During this period of time she has become progressively more weak and she feels that this led to her fall. Within the past several months she experienced a GI bleed and was hospitalized at [facility] in [place] for several days. Evaluation was obtained there including CT scan, will attempt to obtain those records. Right Hip Pain Score (Numeric/FACES): 3 - Related Data Allergies/Adverse Reactions: Allergies Allergy/AdvReac Type Severity Reaction Status Date / Time bupropion Allergy Rash Verified 02/28/18 15:23 Home Medications: Home Meds Aspirin [Halfprin] 81 mg PO DAILY 04/29/14 [History] Carvedilol 6.25 mg PO BID 04/29/14 [History] Insulin Aspart [NovoLOG] 5 unit SQ TIDAC 04/29/14 [History] Insulin Detemir [Levemir] 80 units SQ DAILY 04/29/14 [History] Losartan [Cozaar] 100 mg PO DAILY 04/29/14 [History] Multivitamin [Daily Multiple Vitamin] 1 tab PO DAILY 04/29/14 [History] Nitroglycerin [Nitrostat] 0.4 mg SL QID 04/29/14 [History] Pravastatin [Pravachol] 80 mg PO BEDTIME 04/29/14 [History] Sertraline [Zoloft] 150 mg PO DAILY 04/29/14 [History] Albuterol [Ventolin HFA] 2 puff INH QID PRN 08/27/15 [History] traZODone 50 mg PO DAILY 08/27/15 [History] Albuterol Sulfate 0.63 mg IN Q4HR PRN 07/20/16 [History] Formoterol/Mometasone [Dulera 100 MCG/5 MCG] 2 puff IN BID 07/20/16 [History] Sulfamethoxazole/Trimethoprim [Bactrim 400-80 MG] 1 each PO ASDIRECTED 12/14/17 [History] Baclofen 10 mg PO BEDTIME 01/22/18 [History] Mycophenolate Mofetil 1,000 mg PO BID 01/22/18 [History] Saxagliptin HCl [Onglyza] 1 tab PO DAILY 01/22/18 [History] Acetaminophen/HYDROcodone [[place] 325-5 MG] 1 tab PO DAILY 07/29/18 [History] Ibuprofen 400 mg PO Q6H PRN 07/29/18 [History] Isosorbide Mononitrate [Isosorbide Mononitrate ER] 30 mg PO DAILY 07/29/18 [ History] Omeprazole Magnesium [Prilosec Otc] 20 mg PO DAILY 07/29/18 [History] Ondansetron [Zofran Odt] 8 mg PO BID 07/29/18 [History] Past Medical History HEENT History: Reports: Cataract Cardiovascular History: Reports: Arrhythmia, CAD, Hypertension, [place], Pacemaker Respiratory History: Reports: COPD, Other (See Below) Other Respiratory History: Recently bleeding in lungs. Hospitalized [facility]. D/C November 22 Gastrointestinal History: Reports: GI Bleed Other Gastrointestinal History: Constipation for three days. Patient took two dulcolax tabs this am without results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: Reports: Dysfunctional Uterine Bleeding, Musculoskeletal History: Reports: Arthritis, Osteoarthritis, Osteoporosis, RA Other Musculoskeletal History: sciatic nerve pain Neurological History: Reports: CVA, Other (See Below) Other Neuro History: CHOREA INVOLUNTARY MOVEMENTS HANDS AND FEET Psychiatric History: Reports: Addiction, Anxiety, Depression Endocrine/Metabolic History: Reports: Diabetes, Type II Hematologic History: Reports: Anemia, Blood Transfusion(s) Immunologic History: Reports: Other (See Below) Other Immunologic History: BELA AND RA Dermatologic History: Reports: Other (See Below) Other Dermatologic History: diabetic ulcer - Infectious Disease History Infectious Disease History: Reports: Chicken Pox - Past Surgical History Cardiovascular Surgical History: Reports: Coronary Artery Stent Female Surgical History: Reports: Hysterectomy Social & Family History - Tobacco Use Smoking Status *Q: Unknown Ever Smoked - Caffeine Use Caffeine Use: Reports: None - Recreational Drug Use Recreational Drug Use: No H&P Review of Systems - Review of Systems: Review Of Systems: See Below General: Reports: Weakness, Decreased Appetite, Weight Loss. Denies: Fever, Chills HEENT: Reports: No Symptoms Pulmonary: Reports: No Symptoms Cardiovascular: Reports: No Symptoms Gastrointestinal: Reports: Abdominal Pain, Anorexia. Denies: Black Stool, Bloody Stool, Constipation, Diarrhea, Distension, Nausea, Vomiting Genitourinary: Reports: No Symptoms Musculoskeletal: Reports: Other (Pelvic pain) Skin: Reports: No Symptoms Psychiatric: Reports: No Symptoms Neurological: Reports: No Symptoms Hematologic/Lymphatic: Reports: No Symptoms Immunologic: Reports: No Symptoms Exam - Exam Exam: See Below - Vital Signs Vital Signs: Last Vital Signs Temp 96.0 F 07/29/18 22:24 Pulse 73 07/30/18 05:00 Resp 16 07/29/18 23:00 BP 146/58 H 07/30/18 05:00 Pulse Ox 95 07/29/18 23:00 Weight: 127 lb - Exam Quality Assessment: DVT Prophylaxis General: Alert, Oriented, Cooperative, Moderate Distress HEENT: Conjunctiva Clear, Hearing Intact, Mucosa Moist & [place], Normal Nasal Septum, Posterior Pharynx Clear, Pupils Equal Neck: Supple, Trachea Midline, +2 Carotid Pulse wo Bruit Lungs: Clear to Auscultation, Normal Respiratory Effort Cardiovascular: Regular Rate, Regular Rhythm, Normal S1, Normal S2. No: Systolic Murmur, Diastolic Murmur GI/Abdominal Exam: Soft, No Organomegaly, Tender. No: Distended, Guarding, Rigid, Rebound Back Exam: Normal Inspection, Full Range of Motion Extremities: Non-Tender, No Pedal Edema Skin: Warm, Dry, Intact Neurological: Cranial Nerves Intact, Strength Equal Bilateral, Normal Speech, Normal Tone, Sensation Intact. No: Focal Deficit Neuro Extensive - Mental Status: Alert, Oriented x3, Normal Mood/Affect, Normal Cognition, Memory Intact - Patient Data Result Diagrams: 07/30/18 08:42 07/30/18 08:42 *Q Meaningful Use (ADM) - VTE Risk Assess *Q Each Risk Factor Represents 1 Point: Obesity ( BMI > 25 kg/m2), Abnormal Pulmonary Function (COPD) Total Score 1 Point Risk Factors: 2 Each Risk Factor Represents 2 Points: None Total Score 2 Point Risk Factors: 0 Each Risk Factor Represents 3 Points: Age 75 Years or Greater Total Score 3 Point Risk Factors: 3 Each Risk Factor Represents 5 Points: Hip, Pelvis or Leg Fracture, Less than 1 month Total Score 5 Point Risk Factors: 5 Venous Thromboembolism Risk Factor Score *Q: 10 Problem List Initiated/Reviewed/Updated: Yes Orders Last 24hrs: Active Orders 24 hr Category Date Time Status Patient Status Manage Transfer [TRANSFER] Routine ADT 07/30/18 08:37 Ordered Hip Min 2V or 3V w Pelvis Rt [CR] Stat Exams 07/29/18 23:31 Taken Hip wo Cont Rt [CT] Stat Exams 07/30/18 00:29 Taken CBC WITH AUTO DIFF [HEME] Stat Lab 07/30/18 08:42 Received COMPREHENSIVE METABOLIC PN,CMP [CHEM] Stat Lab 07/30/18 08:42 Received MAGNESIUM [CHEM] Stat Lab 07/30/18 08:42 Received Resuscitation Status Routine Resus Stat 07/30/18 08:44 Ordered Assessment/Plan Comment:: ASSESSMENT AND PLAN RIGHT PELVIC ACETABULAR AND PUBIC RAMI FRACTURE-after review by orthopedic surgery felt not to require surgical intervention. -Cautious IV fluids for hydration -Physical therapy consult -Pain medication as needed -Will likely require alf placement COPD-stable with no evidence of acute exacerbation -Continue outpatient medications ABDOMINAL PAIN-history of weight loss and intermittent pain over the past several months. History of evaluation during that period time at [facility] -Obtain records for review and consider further evaluation CORONARY ARTERY DISEASE-currently asymptomatic -Continue outpatient medications TYPE 2 DIABETES MELLITUS -4 times a day glucometers -Continue outpatient long-acting insulin -Moderate dose sliding scale Humalog MAINTENANCE ISSUES -DVT prophylaxis; Lovenox 40 mg subcutaneous daily -GI prophylaxis; continue outpatient PPI therapy -Mc catheter; not indicated -Nutrition; consistent carb diet -Nicotine dependence; nicotine patch CODE STATUS-FULL CODE ADMISSION STATUS-patient will be admitted to inpatient status, expect at least a 2 night hospital stay for evaluation and management of problems as outlined above. At the time of this admission I do not reasonably expected evaluation and management of this problem will require more than a 96 hour hospital stay. DISPOSITION-anticipate discharge to home after the hospital stay. PRIMARY CARE PROVIDER-
[2018-07-30] MEDS ORDERED: TRIMETHOPRIM PO SCH (09:16)
[2018-07-30] MEDS ORDERED: Sodium Chloride 0.9% 10 ML Syringe FLUSH PRN (09:16)
[2018-07-30] MEDS ORDERED: Ondansetron 4 MG/2 ML SDV IV PRN (09:16)
[2018-07-30] MEDS ORDERED: Albuterol 8 GM Inhaler INH PRN (09:16)
[2018-07-30] MEDS ORDERED: [UNRECOGNIZED DRUG - OTHER] PO SCH (09:16)
[2018-07-30] MEDS ORDERED: HYDROmorphone 0.5 MG/0.5 ML Syringe IVPUSH PRN (09:16)
[2018-07-30] MEDS ORDERED: SULFAMETHOXAZOLE PO SCH (09:16)
[2018-07-30] MEDS ORDERED: Albuterol/Ipratropium 3.0-0.5 MG/3 ML Neb Soln NEB PRN (09:16)
[2018-07-30] MEDS ORDERED: 50% Dextrose in Water 50 ML Syringe IV PRN (09:16)
[2018-07-30] MEDS ORDERED: Albuterol 0.083% 2.5 MG/3 ML Neb Soln NEB PRN (09:16)
[2018-07-30] MEDS ORDERED: Glucose Gel 15 GM in 37.5 GM Tube PO PRN (09:16)
[2018-07-30] MEDS ORDERED: Insulin Glargine,Human Rec. Analog 100 Units/ML 3 ML Pen SUBCUT SCH (09:30)
[2018-07-30] MEDS ORDERED: Nicotine 10 MG/Cartridge Inhaler 168 Cartridges/Box INH PRN (09:38)
[2018-07-30] MEDS ORDERED: Magnesium Sulfate/Water 2 GM in Premix Bag 1 BAG IV ONE (10:30)
[2018-07-30] MEDS: Sodium Chloride 0.9% 1,000 ML IV SCH ×2 (10:44→22:05)
[2018-07-30] MEDS: Mycophenolate Mofetil 250 MG Cap PO SCH ×2 (12:01→21:42)
[2018-07-30] MEDS: Carvedilol 6.25 MG Tab PO SCH ×2 (12:02→21:46)
[2018-07-30] MEDS: Formoterol/Mometasone 100-5 MCG 8.8 GM Inhaler IH SCH ×2 (12:03→21:43)
[2018-07-30] MEDS: Losartan 50 MG Tab PO SCH (12:03)
[2018-07-30] MEDS: Aspirin 81 MG Tab.EC PO SCH (12:04)
[2018-07-30] MEDS: Isosorbide Mononitrate 30 MG Tab.ER PO SCH (12:04)
[2018-07-30] MEDS: Sertraline 50 MG Tab PO SCH (12:04)
[2018-07-30] MEDS: Nicotine 21 MG/24 Hr Patch TRDERM SCH (12:05)
[2018-07-30] MEDS: Pantoprazole 40 MG Tab.CR PO SCH (12:05)
[2018-07-30] MEDS: Insulin Lispro 100 Unit/ML 3 ML KwikPen SUBCUT SCH ×3 (12:06→21:40)
[2018-07-30] MEDS: Acetaminophen 325 MG Tab PO PRN (12:19)
[2018-07-30] MEDS: oxyCODONE 5 MG Tab PO PRN ×2 (12:19→22:06)
[2018-07-30] MEDS: Enoxaparin 40 MG/0.4 ML Syringe SUBCUT SCH (15:01)
[2018-07-30] MEDS: Insulin Glargine,Human Rec. Analog 100 Units/ML 3 ML Pen SUBCUT SCH (15:02)
[2018-07-30] MEDS ORDERED: Nitroglycerin 0.4 MG Tab.SL SL ONE (15:27)
[2018-07-30] MEDS ORDERED: Morphine 2 MG/ML Syringe IVPUSH STA (15:49)
[2018-07-30] MEDS: traZODone 50 MG Tab PO SCH (21:42)
[2018-07-30] MEDS: Magnesium Oxide 400 MG Tab PO SCH (21:45)
[2018-07-30] MEDS: Baclofen 10 MG Tab PO SCH (21:49)
[2018-07-30] MEDS: Pravastatin 20 MG Tab PO SCH (21:51)
[2018-07-31] MEDS: oxyCODONE 5 MG Tab PO PRN ×3 (07:23→21:29)
[2018-07-31] MEDS: Formoterol/Mometasone 100-5 MCG 8.8 GM Inhaler IH SCH ×2 (07:24→21:22)
[2018-07-31] MEDS: Pantoprazole 40 MG Tab.CR PO SCH (07:25)
[2018-07-31] MEDS: Insulin Lispro 100 Unit/ML 3 ML KwikPen SUBCUT SCH ×4 (09:45→21:18)
[2018-07-31] MEDS: Insulin Glargine,Human Rec. Analog 100 Units/ML 3 ML Pen SUBCUT SCH (09:47)
[2018-07-31] MEDS: Mycophenolate Mofetil 250 MG Cap PO SCH ×2 (10:25→21:22)
[2018-07-31] MEDS: Losartan 50 MG Tab PO SCH (10:26)
[2018-07-31] MEDS: Carvedilol 6.25 MG Tab PO SCH ×2 (10:26→21:23)
[2018-07-31] MEDS: Nicotine 21 MG/24 Hr Patch TRDERM SCH (10:27)
[2018-07-31] MEDS: Magnesium Oxide 400 MG Tab PO SCH ×2 (10:28→21:22)
[2018-07-31] MEDS: Sertraline 50 MG Tab PO SCH (10:29)
[2018-07-31] MEDS: Isosorbide Mononitrate 30 MG Tab.ER PO SCH (10:29)
[2018-07-31] MEDS: Sulfamethoxazole/Trimethoprim 800-160 MG Tab PO SCH (10:29)
[2018-07-31] MEDS: Aspirin 81 MG Tab.EC PO SCH (10:31)
[2018-07-31] MEDS: Enoxaparin 40 MG/0.4 ML Syringe SUBCUT SCH (14:15)
--- NOTE | 2018-07-31 20:09 | PCM.PN ---
- General Info Date of Service: 07/31/18 Subjective Update: Ms. Wei has been fairly stable since admission yesterday morning and reports pain control has been adequate. She has been up and walking with the assistance of physical therapy. - Review of Systems General: Denies: Fever, Chills Pulmonary: Reports: No Symptoms Cardiovascular: Reports: No Symptoms Gastrointestinal: Reports: No Symptoms Musculoskeletal: Reports: Other (Pelvic pain) - Patient Data Vitals - Most Recent: Last Vital Signs Temp 96.4 F 07/31/18 19:00 Pulse 76 07/31/18 19:00 Resp 18 07/31/18 19:00 BP 108/41 L 07/31/18 19:00 Pulse Ox 98 07/31/18 19:00 Weight - Most Recent: 137 lb 9.6 oz I&O - Last 24 Hours: Intake & Output 07/31/18 07/31/18 07/31/18 06:59 14:59 22:59 Intake Total 1065 1140 Output Total 300 600 600 Balance 765 540 -600 Lab Results Last 24 Hours: Laboratory Results - last 24 hr 07/30/18 07/31/18 07/31/18 Range/Units 22:59 06:04 06:04 WBC 4.6 (4.5-11.0) K/uL RBC 3.45 (3.30-5.50) M/uL Hgb 9.1 L (12.0-15.0) g/dL Hct 30.8 L (36.0-48.0) % MCV 89 (80-98) fL MCH 26 L (27-31) pg MCHC 30 L (32-36) % Plt Count 88 L (150-400) K/uL Neut % (Auto) 75 H (36-66) % Lymph % (Auto) 15 L (24-44) % [place] % (Auto) 7 H (2-6) % Eos % (Auto) 2 (2-4) % Baso % (Auto) 2 H (0-1) % Sodium 142 (140-148) mmol/L Potassium 4.0 (3.6-5.2) mmol/L Chloride 108 (100-108) mmol/L Carbon Dioxide 28 (21-32) mmol/L Anion Gap 6.1 (5.0-14.0) mmol/L BUN 15 (7-18) mg/dL Creatinine 0.6 (0.6-1.0) mg/dL Est Cr Clr Drug Dosing 51.92 mL/min Estimated GFR (MDRD) > 60 (>60) Glucose 215 H (74-106) mg/dL Calcium 8.5 (8.5-10.1) mg/dL Magnesium 1.9 (1.8-2.4) mg/dL Troponin I < 0.017 (0.000-0.056) ng/mL Med Orders - Current: Current Medications Acetaminophen (Tylenol) 650 mg PO Q4H PRN PRN Reason: Pain (Mild 1-3)/fever Last Admin: 07/30/18 12:19 Dose: 650 mg Albuterol (Ventolin Hfa) 0 gm INH QID PRN PRN Reason: Shortness of Breath Albuterol (Proventil Neb Soln) 2.5 mg NEB Q4H PRN PRN Reason: Shortness Of Breath/wheezing Albuterol/Ipratropium (Duoneb 3.0-0.5 Mg/3 Ml) 3 ml NEB QID PRN PRN Reason: Shortness Of Breath/wheezing Alogliptin Benzoate (Alogliptin) 25 mg PO DAILY [facility] Last Admin: 07/31/18 10:25 Dose: 25 mg Aspirin (Halfprin) 81 mg PO DAILY [facility] Last Admin: 07/31/18 10:31 Dose: 81 mg Baclofen (Lioresal) 10 mg PO BEDTIME [facility] Last Admin: 07/30/18 21:49 Dose: 10 mg Carvedilol (Coreg) 6.25 mg PO BID [facility] Last Admin: 07/31/18 10:26 Dose: 6.25 mg Dextrose (Glutose 15) 15 gm PO ONETIME PRN PRN Reason: Hypoglycemia Dextrose/Water (Dextrose 50% In Water) 50 ml IV ONETIME PRN PRN Reason: Hypoglycemia Enoxaparin Sodium (Lovenox) 40 mg SUBCUT Q24H [facility] Last Admin: 07/31/18 14:15 Dose: 40 mg Hydromorphone HCl (Dilaudid) 0.5 mg IVPUSH Q2H PRN PRN Reason: Pain (severe 7-10) Last Admin: 07/30/18 09:33 Dose: 0.5 mg Insulin Glargine (Lantus Solostar) 35 units SUBCUT DAILY [facility] Last Admin: 07/31/18 09:47 Dose: 35 units Insulin Human Lispro (Humalog) 0 unit SUBCUT QIDACANDBED [facility]; Protocol Last Admin: 07/31/18 17:24 Dose: 4 units Isosorbide Mononitrate (Imdur) 30 mg PO DAILY [facility] Last Admin: 07/31/18 10:29 Dose: 30 mg Losartan Potassium (Cozaar) 100 mg PO DAILY [facility] Last Admin: 07/31/18 10:26 Dose: 100 mg Magnesium Oxide (Magnesium Oxide) 400 mg PO BID [facility] Last Admin: 07/31/18 10:28 Dose: 400 mg Mometasone Furoate/Formoterol Fumar (Dulera 100-5 Mcg) 2 puff IH BIDRT [facility] Last Admin: 07/31/18 07:24 Dose: 2 puff Mycophenolate Mofetil (Cellcept) 1,000 mg PO BID [facility] Last Admin: 07/31/18 10:25 Dose: 1,000 mg Nicotine (Habitrol) 21 mg TRDERM DAILY [facility] Last Admin: 07/31/18 10:27 Dose: Not Given Nicotine (Nicotrol) 10 mg INH Q1H PRN PRN Reason: Other Ondansetron HCl (Zofran) 4 mg IV Q4H PRN PRN Reason: Nausea/Vomiting Oxycodone HCl (Oxycodone) 5 mg PO Q4H PRN PRN Reason: Pain (moderate 4-6) Last Admin: 07/31/18 16:31 Dose: 5 mg Pantoprazole Sodium (Protonix) 40 mg PO ACBREAKFAST [facility] Last Admin: 07/31/18 07:25 Dose: 40 mg Pravastatin Sodium (Pravachol) 80 mg PO BEDTIME [facility] Last Admin: 07/30/18 21:51 Dose: 80 mg Senna/Docusate Sodium (Senna Plus) 1 tab PO BID PRN PRN Reason: Constipation Sertraline HCl (Zoloft) 150 mg PO DAILY [facility] Last Admin: 07/31/18 10:29 Dose: 150 mg Sodium Chloride (Saline Flush) 10 ml FLUSH ASDIRECTED PRN PRN Reason: Keep Vein Open Trazodone HCl (Trazodone) 50 mg PO BEDTIME [facility] Last Admin: 07/30/18 21:42 Dose: 50 mg Trimethoprim/Sulfamethoxazole (Septra Ds) 1 tab PO MoWeFr@0900 [facility] Last Admin: 07/31/18 10:29 Dose: 1 tab Discontinued Medications Fentanyl (Sublimaze) 50 mcg IVPUSH ONETIME ONE Stop: 07/30/18 00:31 Last Admin: 07/30/18 00:58 Dose: 50 mcg Sodium Chloride (Normal Saline) 1,000 mls @ 75 mls/hr IV ASDIRECTED [facility] Last Admin: 07/30/18 22:05 Dose: 75 mls/hr Magnesium Sulfate 2 gm/ Premix 50 mls @ 25 mls/hr IV ONETIME ONE Stop: 07/30/18 12:29 Last Admin: 07/30/18 12:05 Dose: 25 mls/hr Insulin Glargine (Lantus Solostar) 80 units SUBCUT DAILY [facility] Last Admin: 07/30/18 14:48 Dose: Not Given Morphine Sulfate (Morphine) 2 mg IVPUSH ONETIME STA Stop: 07/30/18 15:50 Last Admin: 07/30/18 15:55 Dose: 2 mg Nitroglycerin (Nitrostat) 0.4 mg SL ONETIME ONE Stop: 07/30/18 15:28 Last Admin: 07/30/18 15:33 Dose: 0.4 mg - Exam Quality Assessment: DVT Prophylaxis General: Alert, Oriented, Cooperative, Moderate Distress Lungs: Clear to Auscultation, Normal Respiratory Effort Cardiovascular: Regular Rate, Regular Rhythm, No Murmurs GI/Abdominal Exam: Soft, Non-Tender, No Organomegaly, No Distention - Problem List Review Problem List Initiated/Reviewed/Updated: Yes - My Orders Last 24 Hours: My Active Orders 07/30/18 21:00 Baclofen [Lioresal] 10 mg PO BEDTIME Magnesium Oxide 400 mg PO BID Pravastatin [Pravachol] 80 mg PO BEDTIME traZODone 50 mg PO BEDTIME 07/31/18 09:00 Sulfamethoxazole/Trimethoprim [Septra DS] 1 tab PO MoWeFr@0900 07/31/18 12:29 Convert IV to Peripheral Lock [Convert IV to Saline Lock] [OM.PC] Routine 07/31/18 21:00 GLUCOSE POC LAB TO COLLECT [POC] QIDACANDBED 08/01/18 07:30 GLUCOSE POC LAB TO COLLECT [POC] QIDACANDBED 08/01/18 11:30 GLUCOSE POC LAB TO COLLECT [POC] QIDACANDBED 08/01/18 16:30 GLUCOSE POC LAB TO COLLECT [POC] QIDACANDBED 08/01/18 21:00 GLUCOSE POC LAB TO COLLECT [POC] QIDACANDBED 08/02/18 07:30 GLUCOSE POC LAB TO COLLECT [POC] QIDACANDBED 08/02/18 11:30 GLUCOSE POC LAB TO COLLECT [POC] QIDACANDBED 08/02/18 16:30 GLUCOSE POC LAB TO COLLECT [POC] QIDACANDBED 08/02/18 21:00 GLUCOSE POC LAB TO COLLECT [POC] QIDACANDBED 08/03/18 07:30 GLUCOSE POC LAB TO COLLECT [POC] QIDACANDBED 08/03/18 11:30 GLUCOSE POC LAB TO COLLECT [POC] QIDACANDBED 08/03/18 16:30 GLUCOSE POC LAB TO COLLECT [POC] QIDACANDBED 08/03/18 21:00 GLUCOSE POC LAB TO COLLECT [POC] QIDACANDBED 08/04/18 07:30 GLUCOSE POC LAB TO COLLECT [POC] QIDACANDBED - Plan Plan:: ASSESSMENT AND PLAN RIGHT PELVIC ACETABULAR AND PUBIC RAMI FRACTURE-after review by orthopedic surgery felt not to require surgical intervention. -Saline lock IV -Physical therapy follow-up -Pain medication as needed -Will likely require prison placement COPD-stable with no evidence of acute exacerbation -Continue outpatient medications ABDOMINAL PAIN-history of weight loss and intermittent pain over the past several months. History of evaluation during that period time at [facility] -Obtain records for review and consider further evaluation CORONARY ARTERY DISEASE-currently asymptomatic -Continue outpatient medications TYPE 2 DIABETES MELLITUS -4 times a day glucometers -Continue outpatient long-acting insulin -Moderate dose sliding scale Humalog MAINTENANCE ISSUES -DVT prophylaxis; Lovenox 40 mg subcutaneous daily -GI prophylaxis; continue outpatient PPI therapy -Mc catheter; not indicated -Nutrition; consistent carb diet -Nicotine dependence; nicotine patch CODE STATUS-FULL CODE ADMISSION STATUS-patient will be admitted to inpatient status, expect at least a 2 night hospital stay for evaluation and management of problems as outlined above. At the time of this admission I do not reasonably expected evaluation and management of this problem will require more than a 96 hour hospital stay. DISPOSITION-anticipate discharge to home after the hospital stay. PRIMARY CARE PROVIDER-
[2018-07-31] MEDS: Pravastatin 20 MG Tab PO SCH (21:22)
[2018-07-31] MEDS: Baclofen 10 MG Tab PO SCH (21:22)
[2018-07-31] MEDS: traZODone 50 MG Tab PO SCH (21:22)
[2018-08-01] MEDS: Pantoprazole 40 MG Tab.CR PO SCH (07:20)
[2018-08-01] MEDS: Insulin Lispro 100 Unit/ML 3 ML KwikPen SUBCUT SCH ×4 (07:24→21:37)
[2018-08-01] MEDS: Formoterol/Mometasone 100-5 MCG 8.8 GM Inhaler IH SCH ×2 (07:25→20:44)
[2018-08-01] MEDS: Losartan 50 MG Tab PO SCH (09:00)
[2018-08-01] MEDS: Nicotine 21 MG/24 Hr Patch TRDERM SCH (09:09)
[2018-08-01] MEDS: Mycophenolate Mofetil 250 MG Cap PO SCH ×2 (09:11→20:43)
[2018-08-01] MEDS: Magnesium Oxide 400 MG Tab PO SCH ×2 (09:11→20:46)
[2018-08-01] MEDS: Carvedilol 6.25 MG Tab PO SCH ×2 (09:13→20:48)
[2018-08-01] MEDS: Aspirin 81 MG Tab.EC PO SCH (09:18)
[2018-08-01] MEDS: Sertraline 50 MG Tab PO SCH (09:18)
[2018-08-01] MEDS: Isosorbide Mononitrate 30 MG Tab.ER PO SCH (09:18)
[2018-08-01] MEDS: Insulin Glargine,Human Rec. Analog 100 Units/ML 3 ML Pen SUBCUT SCH (09:22)
[2018-08-01] MEDS: oxyCODONE 5 MG Tab PO PRN ×2 (13:24→19:50)
[2018-08-01] MEDS: Enoxaparin 40 MG/0.4 ML Syringe SUBCUT SCH (13:28)
--- NOTE | 2018-08-01 14:31 | PCM.PN ---
- General Info Date of Service: 08/01/18 Subjective Update: Ms. Wei continues to experience pelvic pain related to her pelvic fracture as well as abdominal pain that she is experienced over the past several months. Records have arrived for review from recent hospitalizations in the past year in [place]. CT scan was obtained in January and showed evidence of some abnormalities within the pelvis. She otherwise has been participating with physical therapy and able to ambulate and weight-bear for short distances. Functional Status: Reports: Urinating - Review of Systems General: Denies: Fever, Chills Pulmonary: Reports: No Symptoms Cardiovascular: Reports: No Symptoms Gastrointestinal: Reports: Abdominal Pain, Decreased Appetite. Denies: Constipation, Diarrhea, Nausea, Vomiting - Patient Data Vitals - Most Recent: Last Vital Signs Temp 98.2 F 08/01/18 12:10 Pulse 72 08/01/18 12:10 Resp 16 08/01/18 12:10 BP 123/98 H 08/01/18 12:10 Pulse Ox 96 08/01/18 12:10 Weight - Most Recent: 145 lb 3.2 oz I&O - Last 24 Hours: Intake & Output 07/31/18 08/01/18 08/01/18 22:59 06:59 14:59 Intake Total 360 1400 Output Total 600 Balance -240 1400 Med Orders - Current: Current Medications Acetaminophen (Tylenol) 650 mg PO Q4H PRN PRN Reason: Pain (Mild 1-3)/fever Last Admin: 07/30/18 12:19 Dose: 650 mg Albuterol (Ventolin Hfa) 0 gm INH QID PRN PRN Reason: Shortness of Breath Albuterol (Proventil Neb Soln) 2.5 mg NEB Q4H PRN PRN Reason: Shortness Of Breath/wheezing Albuterol/Ipratropium (Duoneb 3.0-0.5 Mg/3 Ml) 3 ml NEB QID PRN PRN Reason: Shortness Of Breath/wheezing Alogliptin Benzoate (Alogliptin) 25 mg PO DAILY [facility] Last Admin: 08/01/18 09:13 Dose: 25 mg Aspirin (Halfprin) 81 mg PO DAILY [facility] Last Admin: 08/01/18 09:18 Dose: 81 mg Baclofen (Lioresal) 10 mg PO BEDTIME [facility] Last Admin: 07/31/18 21:22 Dose: 10 mg Carvedilol (Coreg) 6.25 mg PO BID [facility] Last Admin: 08/01/18 09:13 Dose: 6.25 mg Dextrose (Glutose 15) 15 gm PO ONETIME PRN PRN Reason: Hypoglycemia Dextrose/Water (Dextrose 50% In Water) 50 ml IV ONETIME PRN PRN Reason: Hypoglycemia Enoxaparin Sodium (Lovenox) 40 mg SUBCUT Q24H [facility] Last Admin: 08/01/18 13:28 Dose: 40 mg Hydromorphone HCl (Dilaudid) 0.5 mg IVPUSH Q2H PRN PRN Reason: Pain (severe 7-10) Last Admin: 07/30/18 09:33 Dose: 0.5 mg Insulin Glargine (Lantus Solostar) 35 units SUBCUT DAILY [facility] Last Admin: 08/01/18 09:22 Dose: 35 units Insulin Human Lispro (Humalog) 0 unit SUBCUT QIDACANDBED [facility]; Protocol Last Admin: 08/01/18 11:51 Dose: 6 units Isosorbide Mononitrate (Imdur) 30 mg PO DAILY [facility] Last Admin: 08/01/18 09:18 Dose: 30 mg Losartan Potassium (Cozaar) 100 mg PO DAILY [facility] Last Admin: 08/01/18 09:00 Dose: 100 mg Magnesium Oxide (Magnesium Oxide) 400 mg PO BID [facility] Last Admin: 08/01/18 09:11 Dose: 400 mg Mometasone Furoate/Formoterol Fumar (Dulera 100-5 Mcg) 2 puff IH BIDRT [facility] Last Admin: 08/01/18 07:25 Dose: 2 puff Mycophenolate Mofetil (Cellcept) 1,000 mg PO BID [facility] Last Admin: 08/01/18 09:11 Dose: 1,000 mg Nicotine (Habitrol) 21 mg TRDERM DAILY [facility] Last Admin: 08/01/18 09:09 Dose: 21 mg Nicotine (Nicotrol) 10 mg INH Q1H PRN PRN Reason: Other Ondansetron HCl (Zofran) 4 mg IV Q4H PRN PRN Reason: Nausea/Vomiting Oxycodone HCl (Oxycodone) 5 mg PO Q4H PRN PRN Reason: Pain (moderate 4-6) Last Admin: 08/01/18 13:24 Dose: 5 mg Pantoprazole Sodium (Protonix) 40 mg PO ACBREAKFAST [facility] Last Admin: 08/01/18 07:20 Dose: 40 mg Pravastatin Sodium (Pravachol) 80 mg PO BEDTIME [facility] Last Admin: 07/31/18 21:22 Dose: 80 mg Senna/Docusate Sodium (Senna Plus) 1 tab PO BID PRN PRN Reason: Constipation Sertraline HCl (Zoloft) 150 mg PO DAILY [facility] Last Admin: 08/01/18 09:18 Dose: 150 mg Sodium Chloride (Saline Flush) 10 ml FLUSH ASDIRECTED PRN PRN Reason: Keep Vein Open Trazodone HCl (Trazodone) 50 mg PO BEDTIME [facility] Last Admin: 07/31/18 21:22 Dose: 50 mg Trimethoprim/Sulfamethoxazole (Septra Ds) 1 tab PO MoWeFr@0900 [facility] Last Admin: 07/31/18 10:29 Dose: 1 tab Discontinued Medications Fentanyl (Sublimaze) 50 mcg IVPUSH ONETIME ONE Stop: 07/30/18 00:31 Last Admin: 07/30/18 00:58 Dose: 50 mcg Sodium Chloride (Normal Saline) 1,000 mls @ 75 mls/hr IV ASDIRECTED [facility] Last Admin: 07/30/18 22:05 Dose: 75 mls/hr Magnesium Sulfate 2 gm/ Premix 50 mls @ 25 mls/hr IV ONETIME ONE Stop: 07/30/18 12:29 Last Admin: 07/30/18 12:05 Dose: 25 mls/hr Insulin Glargine (Lantus Solostar) 80 units SUBCUT DAILY [facility] Last Admin: 07/30/18 14:48 Dose: Not Given Morphine Sulfate (Morphine) 2 mg IVPUSH ONETIME STA Stop: 07/30/18 15:50 Last Admin: 07/30/18 15:55 Dose: 2 mg Nitroglycerin (Nitrostat) 0.4 mg SL ONETIME ONE Stop: 07/30/18 15:28 Last Admin: 07/30/18 15:33 Dose: 0.4 mg - Exam General: Alert, Oriented, Cooperative, Mild Distress Lungs: Clear to Auscultation, Normal Respiratory Effort Cardiovascular: Regular Rate, Regular Rhythm, No Murmurs GI/Abdominal Exam: Soft, No Organomegaly, Tender. No: Distended, Guarding, Rigid, Rebound Extremities: Non-Tender, No Pedal Edema - Problem List Review Problem List Initiated/Reviewed/Updated: Yes - My Orders Last 24 Hours: My Active Orders 08/01/18 14:26 Abdomen w Cont [CT] Stat 08/01/18 16:30 GLUCOSE POC LAB TO COLLECT [POC] QIDACANDBED 08/01/18 21:00 GLUCOSE POC LAB TO COLLECT [POC] QIDACANDBED 08/02/18 07:30 GLUCOSE POC LAB TO COLLECT [POC] QIDACANDBED 08/02/18 11:30 GLUCOSE POC LAB TO COLLECT [POC] QIDACANDBED 08/02/18 16:30 GLUCOSE POC LAB TO COLLECT [POC] QIDACANDBED 08/02/18 21:00 GLUCOSE POC LAB TO COLLECT [POC] QIDACANDBED 08/03/18 07:30 GLUCOSE POC LAB TO COLLECT [POC] QIDACANDBED 08/03/18 11:30 GLUCOSE POC LAB TO COLLECT [POC] QIDACANDBED 08/03/18 16:30 GLUCOSE POC LAB TO COLLECT [POC] QIDACANDBED 08/03/18 21:00 GLUCOSE POC LAB TO COLLECT [POC] QIDACANDBED 08/04/18 07:30 GLUCOSE POC LAB TO COLLECT [POC] QIDACANDBED - Plan Plan:: ASSESSMENT AND PLAN RIGHT PELVIC ACETABULAR AND PUBIC RAMI FRACTURE-after review by orthopedic surgery felt not to require surgical intervention. -Saline lock IV -Weightbearing as tolerated -Physical therapy follow-up -Pain medication as needed -Will likely require alf placement COPD-stable with no evidence of acute exacerbation -Continue outpatient medications ABDOMINAL PAIN-history of weight loss and intermittent pain over the past several months. Records obtained from hospitalization in [place], CT scan obtained last summer and did show evidence of some abnormalities within the pelvis -CT scan of the abdomen and pelvis for reassessment of chronic abdominal pain and weight loss CORONARY ARTERY DISEASE-currently asymptomatic -Continue outpatient medications TYPE 2 DIABETES MELLITUS -4 times a day glucometers -Continue outpatient long-acting insulin -Moderate dose sliding scale Humalog MAINTENANCE ISSUES -DVT prophylaxis; Lovenox 40 mg subcutaneous daily -GI prophylaxis; continue outpatient PPI therapy -Mc catheter; not indicated -Nutrition; consistent carb diet -Nicotine dependence; nicotine patch CODE STATUS-FULL CODE ADMISSION STATUS-patient will be admitted to inpatient status, expect at least a 2 night hospital stay for evaluation and management of problems as outlined above. At the time of this admission I do not reasonably expected evaluation and management of this problem will require more than a 96 hour hospital stay. DISPOSITION-anticipate discharge to home after the hospital stay. PRIMARY CARE PROVIDER-
[2018-08-01] MEDS ORDERED: Iopamidol 612 MG/ML 100 ML Bottle IV SCH (14:45)
[2018-08-01] MEDS ORDERED: Sodium Chloride 0.9% 80 ML IV SCH (14:45)
[2018-08-01] MEDS: Acetaminophen 325 MG Tab PO PRN (19:50)
[2018-08-01] MEDS: Baclofen 10 MG Tab PO SCH (20:45)
[2018-08-01] MEDS: Pravastatin 20 MG Tab PO SCH (20:47)
[2018-08-01] MEDS: traZODone 50 MG Tab PO SCH (20:48)
[2018-08-02] MEDS: oxyCODONE 5 MG Tab PO PRN ×2 (04:02→10:18)
[2018-08-02] MEDS: Acetaminophen 325 MG Tab PO PRN (04:02)
[2018-08-02] MEDS: Formoterol/Mometasone 100-5 MCG 8.8 GM Inhaler IH SCH (07:16)
[2018-08-02] MEDS: Insulin Lispro 100 Unit/ML 3 ML KwikPen SUBCUT SCH ×2 (07:54→11:43)
[2018-08-02 08:55] VITALS: BP 81/49
[2018-08-02] MEDS: Pantoprazole 40 MG Tab.CR PO SCH (08:56)
[2018-08-02] MEDS: Mycophenolate Mofetil 250 MG Cap PO SCH (08:57)
[2018-08-02] MEDS: Losartan 50 MG Tab PO SCH (08:57)
[2018-08-02] MEDS: Carvedilol 6.25 MG Tab PO SCH (08:58)
[2018-08-02] MEDS: Isosorbide Mononitrate 30 MG Tab.ER PO SCH (08:58)
[2018-08-02] MEDS: Nicotine 21 MG/24 Hr Patch TRDERM SCH (08:59)
[2018-08-02] MEDS: Sulfamethoxazole/Trimethoprim 800-160 MG Tab PO SCH (09:00)
[2018-08-02] MEDS: Magnesium Oxide 400 MG Tab PO SCH (09:00)
[2018-08-02] MEDS: Aspirin 81 MG Tab.EC PO SCH (09:00)
[2018-08-02] MEDS: Sertraline 50 MG Tab PO SCH (09:13)
[2018-08-02] MEDS: Insulin Glargine,Human Rec. Analog 100 Units/ML 3 ML Pen SUBCUT SCH (09:14)
--- NOTE | 2018-08-02 11:00 | NM ---
HEPATOBILIARY SCAN WITH EJECTION FRACTION: Clinical History: Abdominal pain and nausea Multiple images of the hepatobiliary system were obtained following the IV injection of 5.27 mCi of technetium 99m Choletec. 60 minutes into the study the patient was given1.32 mcg of CCK.]Quantitative analysis of the gallbladder was performed. Findings: There is a normal pattern of hepatic uptake. Biliary activity is seen at 10minutes. Gallbladder activity is seen at 20minutes. Intestinal activity is seen at 60minutes. Following the Kinevac infusion the gallbladder ejection fraction was calculated at 74.2%. Impression:Normal hepatobiliary scan The gallbladder ejection fraction wasnormal at 74.2%
--- NOTE | 2018-08-02 11:29 | PCM.DCSUM1 ---
Discharge Summary - Hospital Course Brief History: Ms. Wei is an 83-year-old woman who was admitted through the emergency department with pelvic pain secondary to right acetabular and pubic rami fractures. - Discharge Data Discharge Date: 08/02/18 Discharge Disposition: DC/Tfer to SNF 03 Condition: Fair - Discharge Diagnosis/Problem(s) (1) Closed fracture of single pubic ramus of pelvis SNOMED Code(s): 061666259 ICD Code: S32.509A - UNSP FRACTURE OF UNSP PUBIS, INIT ENCNTR FOR CLOSED FRACTURE Status: Acute Current Visit: Yes (2) Acetabulum fracture, right SNOMED Code(s): 19217834 ICD Code: S32.401A - UNSP FRACTURE OF RIGHT ACETABULUM, INIT FOR CLOS FX Status: Acute Current Visit: Yes Qualifiers: Encounter type: initial encounter Sublocation of acetabulum: anterior wall Fracture type: closed Fracture alignment: nondisplaced Qualified Code(s) : S32.414A - Nondisplaced fracture of anterior wall of right acetabulum, initial encounter for closed fracture - Patient Summary/Data Consults: Consultations 07/30/18 09:16 PT Evaluation and Treatment [CONS] Routine Please Evaluate and Treat. PT Reason for Consult: Pelvic/acetabular fracture This query below is only for informational purposes and is not editable. Hospital Course: Ms. Wei is an 83-year-old woman who was admitted through the emergency department after falling at home and experiencing pubic rami fracture as well as nondisplaced acetabular fracture. Fractures identified on CT scan and have been reviewed by orthopedic surgery, fractures are felt to be nonsurgical at the present time. She was felt to be able to weight-bear as tolerated. She has multiple other underlying medical problems including diabetes, COPD, congestive heart failure, and coronary artery disease. She reports a recent history of abdominal pain over the past several months with a 20 pound weight loss. During this period of time she has become progressively more weak and she feels that this led to her fall. Within the past several months she experienced a GI bleed and was hospitalized at [facility] in [place] for several days. Evaluation was obtained there including CT scan, will attempt to obtain those records. During hospital stay she was seen and followed by physical therapy, by the time of discharge was able to walk short distances with use of a walker. Records were obtained from [place] and reviewed. CT scan of the abdomen and pelvis was repeated and showed no obvious abnormalities to explain her ongoing pain and weight loss. After further discussion decision was made to evaluate for gallbladder disease in a CCK HIDA and was obtained on the day of discharge, study was interpreted as normal with normal ejection fraction and only slight abdominal discomfort with use of CCK. She will be discharged to the assisted for further restorative physical therapy and occupational therapy. Activity will be as tolerated and she will remain on a cardiac diabetic diet. Follow-up appointment is already been made with orthopedic surgery. - Patient Instructions Diet: Usual Diet as Tolerated Activity: As Tolerated Other/Special Instructions: Appointment with orthopedic surgery in 2 weeks, for follow-up of acetabular and pubic rami fractures. - Discharge Plan *PRESCRIPTION DRUG MONITORING PROGRAM REVIEWED*: Not Applicable *COPY OF PRESCRIPTION DRUG MONITORING REPORT IN PATIENT CHINEDU: Not Applicable Prescriptions/Med Rec: oxyCODONE 5 mg PO Q4H PRN #20 tablet PRN Reason: Pain (Moderate 4-6) Home Medications: Home Meds Aspirin [Halfprin] 81 mg PO DAILY 04/29/14 [History] Carvedilol 6.25 mg PO BID 04/29/14 [History] Insulin Aspart [NovoLOG] 5 unit SQ TIDAC 04/29/14 [History] Insulin Detemir [Levemir] 80 units SQ DAILY 04/29/14 [History] Losartan [Cozaar] 100 mg PO DAILY 04/29/14 [History] Multivitamin [Daily Multiple Vitamin] 1 tab PO DAILY 04/29/14 [History] Nitroglycerin [Nitrostat] 0.4 mg SL QID 04/29/14 [History] Pravastatin [Pravachol] 80 mg PO BEDTIME 04/29/14 [History] Sertraline [Zoloft] 150 mg PO DAILY 04/29/14 [History] Albuterol [Ventolin HFA] 2 puff INH QID PRN 08/27/15 [History] traZODone 50 mg PO DAILY 08/27/15 [History] Albuterol Sulfate 0.63 mg IN Q4HR PRN 07/20/16 [History] Formoterol/Mometasone [Dulera 100 MCG/5 MCG] 2 puff IN BID 07/20/16 [History] Baclofen 10 mg PO BEDTIME 01/22/18 [History] Mycophenolate Mofetil 1,000 mg PO BID 01/22/18 [History] Saxagliptin HCl [Onglyza] 1 tab PO DAILY 01/22/18 [History] Acetaminophen/HYDROcodone [[place] 325-5 MG] 1 tab PO DAILY 07/29/18 [History] Ibuprofen 400 mg PO Q6H PRN 07/29/18 [History] Isosorbide Mononitrate [Isosorbide Mononitrate ER] 30 mg PO DAILY 07/29/18 [ History] Omeprazole Magnesium [Prilosec Otc] 20 mg PO DAILY 07/29/18 [History] Ondansetron [Zofran Odt] 8 mg PO BID 07/29/18 [History] Sulfamethoxazole/Trimethoprim [Sulfamethoxazole-Tmp Ds Tablet] 1 tab PO MOWEFR@ 0900 07/30/18 [History] oxyCODONE 5 mg PO Q4H PRN #20 tablet 08/02/18 [Rx] Referrals: Daniel Wan MD [Physician] - 08/15/18 11:00 am - Discharge Summary/Plan Comment DC Time >30 min.: No - Patient Data Vitals - Most Recent: Last Vital Signs Temp 97.3 F 08/02/18 08:53 Pulse 71 08/02/18 08:58 Resp 18 08/02/18 08:53 BP 81/49 L 08/02/18 08:58 Pulse Ox 97 08/02/18 08:53 Weight - Most Recent: 153 lb 6.4 oz I&O - Last 24 hours: Intake & Output 08/01/18 08/02/18 08/02/18 22:59 06:59 14:59 Intake Total 240 480 Output Total 200 200 Balance -200 40 480 Med Orders - Current: Current Medications Acetaminophen (Tylenol) 650 mg PO Q4H PRN PRN Reason: Pain (Mild 1-3)/fever Last Admin: 08/02/18 04:02 Dose: 650 mg Albuterol (Ventolin Hfa) 0 gm INH QID PRN PRN Reason: Shortness of Breath Albuterol (Proventil Neb Soln) 2.5 mg NEB Q4H PRN PRN Reason: Shortness Of Breath/wheezing Albuterol/Ipratropium (Duoneb 3.0-0.5 Mg/3 Ml) 3 ml NEB QID PRN PRN Reason: Shortness Of Breath/wheezing Alogliptin Benzoate (Alogliptin) 25 mg PO DAILY [facility] Last Admin: 08/02/18 08:57 Dose: 25 mg Aspirin (Halfprin) 81 mg PO DAILY [facility] Last Admin: 08/02/18 09:00 Dose: 81 mg Baclofen (Lioresal) 10 mg PO BEDTIME [facility] Last Admin: 08/01/18 20:45 Dose: 10 mg Carvedilol (Coreg) 6.25 mg PO BID [facility] Last Admin: 08/02/18 08:58 Dose: 6.25 mg Dextrose (Glutose 15) 15 gm PO ONETIME PRN PRN Reason: Hypoglycemia Dextrose/Water (Dextrose 50% In Water) 50 ml IV ONETIME PRN PRN Reason: Hypoglycemia Enoxaparin Sodium (Lovenox) 40 mg SUBCUT Q24H [facility] Last Admin: 08/01/18 13:28 Dose: 40 mg Hydromorphone HCl (Dilaudid) 0.5 mg IVPUSH Q2H PRN PRN Reason: Pain (severe 7-10) Last Admin: 07/30/18 09:33 Dose: 0.5 mg Insulin Glargine (Lantus Solostar) 35 units SUBCUT DAILY [facility] Last Admin: 08/02/18 09:14 Dose: 35 units Insulin Human Lispro (Humalog) 0 unit SUBCUT QIDACANDBED [facility]; Protocol Last Admin: 08/02/18 07:54 Dose: Not Given Isosorbide Mononitrate (Imdur) 30 mg PO DAILY [facility] Last Admin: 08/02/18 08:58 Dose: 30 mg Losartan Potassium (Cozaar) 100 mg PO DAILY [facility] Last Admin: 08/02/18 08:57 Dose: 100 mg Magnesium Oxide (Magnesium Oxide) 400 mg PO BID [facility] Last Admin: 08/02/18 09:00 Dose: 400 mg Mometasone Furoate/Formoterol Fumar (Dulera 100-5 Mcg) 2 puff IH BIDRT [facility] Last Admin: 08/02/18 07:16 Dose: 2 puff Mycophenolate Mofetil (Cellcept) 1,000 mg PO BID [facility] Last Admin: 08/02/18 08:57 Dose: 1,000 mg Nicotine (Habitrol) 21 mg TRDERM DAILY [facility] Last Admin: 08/02/18 08:59 Dose: 21 mg Nicotine (Nicotrol) 10 mg INH Q1H PRN PRN Reason: Other Ondansetron HCl (Zofran) 4 mg IV Q4H PRN PRN Reason: Nausea/Vomiting Oxycodone HCl (Oxycodone) 5 mg PO Q4H PRN PRN Reason: Pain (moderate 4-6) Last Admin: 08/02/18 10:18 Dose: 5 mg Pantoprazole Sodium (Protonix) 40 mg PO ACBREAKFAST [facility] Last Admin: 08/02/18 08:56 Dose: 40 mg Pravastatin Sodium (Pravachol) 80 mg PO BEDTIME [facility] Last Admin: 08/01/18 20:47 Dose: 80 mg Senna/Docusate Sodium (Senna Plus) 1 tab PO BID PRN PRN Reason: Constipation Sertraline HCl (Zoloft) 150 mg PO DAILY [facility] Last Admin: 08/02/18 09:13 Dose: 150 mg Sodium Chloride (Saline Flush) 10 ml FLUSH ASDIRECTED PRN PRN Reason: Keep Vein Open Last Admin: 08/01/18 15:30 Dose: 10 ml Trazodone HCl (Trazodone) 50 mg PO BEDTIME [facility] Last Admin: 08/01/18 20:48 Dose: 50 mg Trimethoprim/Sulfamethoxazole (Septra Ds) 1 tab PO MoWeFr@0900 [facility] Last Admin: 08/02/18 09:00 Dose: 1 tab Discontinued Medications Fentanyl (Sublimaze) 50 mcg IVPUSH ONETIME ONE Stop: 07/30/18 00:31 Last Admin: 07/30/18 00:58 Dose: 50 mcg Sodium Chloride (Normal Saline) 1,000 mls @ 75 mls/hr IV ASDIRECTED [facility] Last Admin: 07/30/18 22:05 Dose: 75 mls/hr Magnesium Sulfate 2 gm/ Premix 50 mls @ 25 mls/hr IV ONETIME ONE Stop: 07/30/18 12:29 Last Admin: 07/30/18 12:05 Dose: 25 mls/hr Sodium Chloride (Normal Saline) 80 mls @ 3 mls/sec IV ASDIRECTED [facility] Stop: 08/01/18 17:00 Last Admin: 08/01/18 15:30 Dose: 3 mls/sec Insulin Glargine (Lantus Solostar) 80 units SUBCUT DAILY [facility] Last Admin: 07/30/18 14:48 Dose: Not Given Iopamidol (Isovue-300 (61%)) 100 ml IV . DIRECTED [facility] Stop: 08/01/18 16:00 Last Admin: 08/01/18 15:30 Dose: 100 ml Morphine Sulfate (Morphine) 2 mg IVPUSH ONETIME STA Stop: 07/30/18 15:50 Last Admin: 07/30/18 15:55 Dose: 2 mg Nitroglycerin (Nitrostat) 0.4 mg SL ONETIME ONE Stop: 07/30/18 15:28 Last Admin: 07/30/18 15:33 Dose: 0.4 mg - Exam General: Reports: Alert, Oriented Lungs: Reports: Clear to Auscultation, Normal Respiratory Effort Cardiovascular: Reports: Regular Rate, Regular Rhythm, No Murmurs GI/Abdominal Exam: Soft, Non-Tender, No Organomegaly, No Distention
== END 2018-08-02 12:31 | DRG 535 ==
LOC: JP.ED 22:17 → JP.MS 07-30 08:37 → UNDOADMIN 07-30 08:45 → JP.MS 07-30 08:45
PROVIDERS: ADMIT Hospitalist; ATTEND Hospitalist
DX: S32.591A Other specified fracture of right pubis, initial encounter for closed fracture (principal); S32.491A Other specified fracture of right acetabulum, initial encounter for closed fracture; I11.0 Hypertensive heart disease with heart failure; I50.9 Heart failure, unspecified; E11.9 Type 2 diabetes mellitus without complications; J44.9 Chronic obstructive pulmonary disease, unspecified; Z86.73 Personal history of transient ischemic attack (TIA), and cerebral infarction without residual deficits; W01.0XXA Fall on same level from slipping, tripping and stumbling without subsequent striking against object, initial encounter; M06.9 Rheumatoid arthritis, unspecified; Y92.009 Unspecified place in unspecified non-institutional (private) residence as the place of occurrence of the external cause; M25.552 Pain in left hip; R63.4 Abnormal weight loss; R10.9 Unspecified abdominal pain; G25.5 Other chorea; I25.10 Atherosclerotic heart disease of native coronary artery without angina pectoris; I25.2 Old myocardial infarction; Z95.0 Presence of cardiac pacemaker; M19.90 Unspecified osteoarthritis, unspecified site; F43.9 Reaction to severe stress, unspecified; F32.9 Major depressive disorder, single episode, unspecified; Z95.5 Presence of coronary angioplasty implant and graft; Z79.82 Long term (current) use of aspirin; Z88.8 Allergy status to other drugs, medicaments and biological substances; Z79.4 Long term (current) use of insulin; Z90.710 Acquired absence of both cervix and uterus
CPT/HCPCS: 36415; 73502; 73700; 96372; 99285; J3010; 74177; 78227; 78227-26; 80048; 80053; 82962; 83735; 84484; 85025; 93005; 94640; 97110-GP; 97162-GP; 97530-GP; 97535-GP; A9270-GY; J1170; J1650; J1815; J1815-GY; J2270; J3475; J7030; Q9967